=== PATIENT | female | born 1965 | race Hispanic/Latino ===

== ENCOUNTER 2018-02-18 08:43 | Observation (INO) | payer MEDICARE ==
[2018-02-17 15:50] VITALS: BP 127/69
[2018-02-17 16:05] LABS: BASOPHILS % (AUTO) 0.5 % (0.0-5.0); EOSINOPHILS % (AUTO) 6.8 % (0.0-8.0); HEMATOCRIT 37.2 % (36-48); LYMPHOCYTES % (AUTO) 24.3 % (21.0-51.0); MEAN CORPUSCULAR HEMOGLOBIN 28.1 pg (27.0-33.0); MEAN CORPUSCULAR HGB CONC 34.9 g/dL (32.0-36.0); MEAN CORPUSCULAR VOLUME 80.4 fL (79-99); MONOCYTES % (AUTO) 10.1 % (3.0-13.0); NEUTROPHILS % (AUTO) 58.3 % (40.0-77.0); NUCLEATED RED BLOOD CELLS 0.1 % (0.0-0.19); PLATELET COUNT (AUTO) 315 K/uL (130-400); RED BLOOD CELL COUNT(AUTO) 4.63 MIL/uL (4.00-5.50); RED CELL DISTRIBUTION WIDTH 14.6 % (11.0-15.5); WHITE BLOOD COUNT (AUTO) 8.9 K/uL (4.8-10.8)
[2018-02-17 16:14] LABS: CREATININE 0.6 mg/dL (0.5-1.5); POTASSIUM 4.1 mmol/L (3.5-5.1)
[~2018-02-18] VITALS: Ht 160 cm; Wt 119.9 kg
[2018-02-18] VITALS (25 sets, daily range): BP systolic 84–137; BP diastolic 52–88
[~2018-02-18 08:43] MED LIST: CEFAZOLIN 3GM /D5W 100ML 100 ML IV SCH; LOSA1TAB37 PO; METF500T6 PO; NAPR-1023 PO; ROPI4TAB4 PO
[2018-02-18] MEDS ORDERED: SODIUM CHLORIDE 0.9% 1000ML 1,000 ML IV ONE (09:44)
[2018-02-18] MEDS ORDERED: MEPERIDINE-PF 25 MG/ML SYG ONE (09:56)
[2018-02-18] MEDS ORDERED: MEPERIDINE-PF 25 MG/ML SYG IV SCH (10:00)
[2018-02-18] MEDS: CEFAZOLIN SODIUM 1 GM VIAL ONE ×2 (10:04→14:11)
[2018-02-18] MEDS ORDERED: CEFAZOLIN SODIUM 1 GM VIAL ONE ×2 (13:06→14:54)
[2018-02-18] MEDS ORDERED: PROPOFOL 10 MG/ML 20ML VIAL IV ONE (13:45)
[2018-02-18] MEDS ORDERED: DEXAMETHASONE SOD PHOSPHATE 10MG/ML 1ML VIAL ONE (13:45)
[2018-02-18] MEDS ORDERED: ONDANSETRON HCL 4 MG/2 ML VIAL ONE (13:45)
[2018-02-18] MEDS ORDERED: MIDAZOLAM HCL 1 MG/ML 2ML VIAL ONE (13:45)
[2018-02-18] MEDS ORDERED: GLYCOPYRROLATE 0.2 MG/ML 5 ML VIAL ONE ×2 (13:45→14:41)
[2018-02-18] MEDS ORDERED: LIDOCAINE PF 2% 5ML ABBOJECT ONE (13:45)
[2018-02-18] MEDS ORDERED: FENTANYL CITRATE PF 50 MCG/1 ML 2ML VIAL ONE (13:46)
[2018-02-18] MEDS ORDERED: ROPIVACAINE 0.5% 5MG/ML 30ML IJ ONE (13:56)
[2018-02-18] MEDS ORDERED: PHENYLEPHRINE HCL 10 MG/ML 1ML VIAL IV ONE (14:41)
[2018-02-18] MEDS ORDERED: NEOSTIGMINE METHYLSULFATE 1MG/ML IV ONE (14:41)
[2018-02-18] MEDS ORDERED: EPHEDRINE SULFATE 50 MG/ML AMPULE ONE (15:24)
[2018-02-18] MEDS ORDERED: DiphenhydrAMINE HCL 50 MG/ML VIAL IVP PRN (16:15)
[2018-02-18] MEDS ORDERED: POTASSIUM CHLORIDE 20 MEQ ERTAB PO PRN (16:15)
[2018-02-18] MEDS ORDERED: TEMAZEPAM 15 MG CAPSULE PO PRN (16:15)
[2018-02-18] MEDS ORDERED: PROMETHAZINE HCL 25 MG/ML 1ML AMPULE IM PRN (16:15)
[2018-02-18] MEDS ORDERED: FE FUMARATE/FA/MV, MIN COMB#15 1 TAB PO PRN (16:15)
[2018-02-18] MEDS ORDERED: DIPHENHYDRAMINE HCL 25 MG CAPSULE PO PRN (16:15)
[2018-02-18] MEDS ORDERED: HYDROCODONE/ACETAMINOPHEN 5/325 MG TAB PO PRN (16:15)
[2018-02-18] MEDS ORDERED: POTASSIUM CHLORIDE 10% ELIXIR 20 MEQ/15 ML UDCUP PO PRN (16:15)
[2018-02-18] MEDS ORDERED: POTASSIUM CHLORIDE 20MEQ/100ML 100 ML IV PRN (16:15)
[2018-02-18] MEDS ORDERED: LIDOCAINE HCL-MPF 1% 2ML VIAL IVP PRN (16:15)
[2018-02-18] MEDS ORDERED: CALCIUM CARBONATE 500 MG TABLET PO PRN (16:15)
[2018-02-18] MEDS ORDERED: TRANEXAMIC ACID 1000MG/10ML IV ONE (16:42)
[2018-02-18] MEDS: KETOROLAC TROMETHAMINE 30MG/ML IV PRN (18:40)
[2018-02-18] MEDS: SODIUM CHLORIDE 0.9% 1000ML 1,000 ML IV SCH ×2 (18:40→22:01)
[2018-02-18] MEDS ORDERED: MORPHINE SULFATE 2 MG/ML 1ML SYG IVP PRN (20:00)
[2018-02-18] MEDS: FAMOTIDINE 20MG TAB 20 MG TAB PO SCH (20:15)
[2018-02-18] MEDS: HYDROCODONE/ACETAMINOPHEN 5/325 MG TAB PO PRN (20:18)
[2018-02-18] MEDS: INSULIN HUMULIN R 100 UNIT/ML 3ML SQ SCH (20:23)
[2018-02-18] MEDS: CEFAZOLIN 3GM /D5W 100ML 100 ML IV SCH (21:58)
[2018-02-18] MEDS: METFORMIN HCL 500 MG TABLET PO SCH (22:01)
[2018-02-18] MEDS: ROPINIROLE HCL 1 MG TABLET PO SCH (22:09)
[2018-02-19 04:00] VITALS: BP 124/71
[2018-02-19] MEDS: HYDROCODONE/ACETAMINOPHEN 5/325 MG TAB PO PRN (05:10)
[2018-02-19] MEDS: CEFAZOLIN 3GM /D5W 100ML 100 ML IV SCH (05:11)
[2018-02-19 05:45] LABS: HEMATOCRIT 33.4 % (36-48); MEAN CORPUSCULAR HEMOGLOBIN 27.5 pg (27.0-33.0); MEAN CORPUSCULAR VOLUME 80.8 fL (79-99); NUCLEATED RED BLOOD CELLS 0.1 % (0.0-0.19); PLATELET COUNT (AUTO) 269 K/uL (130-400); RED BLOOD CELL COUNT(AUTO) 4.14 MIL/uL (4.00-5.50); RED CELL DISTRIBUTION WIDTH 14.8 % (11.0-15.5); WHITE BLOOD COUNT (AUTO) 8.4 K/uL (4.8-10.8)
[2018-02-19 06:12] LABS: CREATININE 0.7 mg/dL (0.5-1.5); POTASSIUM 3.3 mmol/L (3.5-5.1)
[2018-02-19] MEDS: INSULIN HUMULIN R 100 UNIT/ML 3ML SQ SCH ×2 (07:30→11:30)
[2018-02-19 08:00] VITALS: BP 113/70
[2018-02-19] MEDS: METFORMIN HCL 500 MG TABLET PO SCH (08:35)
[2018-02-19] MEDS: ROPINIROLE HCL 1 MG TABLET PO SCH (08:35)
[2018-02-19] MEDS: FAMOTIDINE 20MG TAB 20 MG TAB PO SCH (08:35)
[2018-02-19] MEDS: KETOROLAC TROMETHAMINE 30MG/ML IV PRN (08:37)
[2018-02-19] MEDS: SODIUM CHLORIDE 0.9% 1000ML 1,000 ML IV SCH (08:48)
[2018-02-19] MEDS ORDERED: ENOXAPARIN SODIUM 40 MG/0.4 ML SYRINGE SQ SCH (09:00)
[2018-02-19] MEDS ORDERED: NAPROXEN 500 MG TABLET PO SCH (09:00)
[2018-02-19] MEDS ORDERED: LOSARTAN/HYDROCHLOROTHIAZIDE 50-12.5MG TABLET PO SCH (09:00)
[2018-02-19] MEDS ORDERED: POLYETHYLENE GLYCOL 3350 17 GM POWD.PACK PO SCH (09:00)
[2018-02-19] MEDS ORDERED: HYDR-2132 PO (10:31)
[2018-02-19 12:00] VITALS: BP 115/64
[2018-02-19] MEDS ORDERED: PSYLLIUM SEED 1 EACH PACKET PO SCH (12:00)
[2018-02-20] MEDS ORDERED: BISACODYL 5 MG TABLET.DR PO PRN (16:15)
[2018-02-21] MEDS ORDERED: BISACODYL 10 MG SUPP.RECT RC PRN (16:15)
== END 2018-02-19 14:05 | disposition home health service (06) ==
LOC: DAH 08:43 → 4AH 08:44 → DAH 08:44
PROVIDERS: ADMIT Orthopaedic Surgery; ATTEND Orthopaedic Surgery
DX: M25.512 Pain in left shoulder (principal); E11.9 Type 2 diabetes mellitus without complications; I10 Essential (primary) hypertension; M06.9 Rheumatoid arthritis, unspecified; Z90.710 Acquired absence of both cervix and uterus; Z96.619 Presence of unspecified artificial shoulder joint; Z82.49 Family history of ischemic heart disease and other diseases of the circulatory system; Z83.3 Family history of diabetes mellitus
CPT/HCPCS: 23130; 36415 ×2; 80048 ×2; 82948 ×4; 85025; 85027; 87070; 87076; 87205; 88300; 96365; 96372; 96375 ×2; 96376; A4218; A4565; A4600; A4649 ×2; A4930 ×2; A6204; C1776; G0378 ×29; J0690 ×4; J1100; J1650; J1885 ×2; J2001; J2175; J2250; J2370; J2405; J2704; J2710; J2795; J3010; J3490 ×4; J7030 ×3; 96374

== ENCOUNTER → 2018-05-10 | Outpatient (CLI) | payer MEDICARE ==
[~2018-05-10] MED LIST changes: -CEFAZOLIN 3GM /D5W 100ML 100 ML IV SCH; +ESOM40CA PO; +HYDR-2132 PO; +HYDR-309 PO; +HYDR25TA PO; +ROPI2TAB2 PO; +VENL75TA63 PO
== END | disposition home or self-care (01) ==
LOC: RAH 14:14
PROVIDERS: ATTEND Physician Assistant
DX: M25.551 Pain in right hip (principal); M79.89 Other specified soft tissue disorders
CPT/HCPCS: 72100; 73502

== ENCOUNTER 2018-05-26 15:00 | Observation (INO) | payer MEDICARE ==
[~2018-05-26] VITALS: Ht 157.5 cm; Wt 119.1 kg
[~2018-05-26 15:00] MED LIST changes: -ESOM40CA PO; -HYDR-2132 PO; -HYDR-309 PO; -HYDR25TA PO; -ROPI2TAB2 PO; -ROPI4TAB4 PO; -VENL75TA63 PO
[2018-05-26 15:26] VITALS: BP 127/75
[2018-05-26 15:30] LABS: BASOPHILS % (AUTO) 0.5 % (0.0-5.0); EOSINOPHILS % (AUTO) 6.1 % (0.0-8.0); HEMATOCRIT 38.6 % (36-48); LYMPHOCYTES % (AUTO) 27.1 % (21.0-51.0); MEAN CORPUSCULAR HEMOGLOBIN 27.3 pg (27.0-33.0); MEAN CORPUSCULAR HGB CONC 34.6 g/dL (32.0-36.0); MONOCYTES % (AUTO) 7.7 % (3.0-13.0); NEUTROPHILS % (AUTO) 58.6 % (40.0-77.0); PLATELET COUNT (AUTO) 326 K/uL (130-400); RED BLOOD CELL COUNT(AUTO) 4.88 MIL/uL (4.00-5.50); RED CELL DISTRIBUTION WIDTH 16.3 % (11.0-15.5); WHITE BLOOD COUNT (AUTO) 8.2 K/uL (4.8-10.8)
[2018-05-26 15:37] LABS: CREATININE 0.7 mg/dL (0.5-1.5); POTASSIUM 3.5 mmol/L (3.5-5.1)
[2018-05-26] MEDS ORDERED: ROPI2TAB2 PO (15:47)
[2018-05-26] MEDS ORDERED: ESOM40CA PO (15:47)
[2018-05-26] MEDS ORDERED: VENL75TA63 PO (15:47)
[2018-05-26] MEDS ORDERED: HYDR25TA PO (15:47)
[2018-05-27] VITALS (22 sets, daily range): BP systolic 106–168; BP diastolic 63–85
[2018-05-27] MEDS ORDERED: SODIUM CHLORIDE 0.9% 1000ML 1,000 ML IV ONE (08:15)
[2018-05-27] MEDS ORDERED: CEFAZOLIN SODIUM 1 GM VIAL ONE (08:51)
[2018-05-27] MEDS ORDERED: GLYCOPYRROLATE 0.2 MG/ML 5 ML VIAL ONE (08:52)
[2018-05-27] MEDS ORDERED: NEOSTIGMINE 5MG/5ML SYR IV ONE (08:52)
[2018-05-27] MEDS ORDERED: LIDOCAINE PF 2% 5ML ABBOJECT ONE (08:52)
[2018-05-27] MEDS ORDERED: ONDANSETRON HCL 4 MG/2 ML VIAL ONE ×3 (08:52→13:45)
[2018-05-27] MEDS ORDERED: DEXAMETHASONE SOD PHOSPHATE 10MG/ML 1ML VIAL ONE (08:52)
[2018-05-27] MEDS ORDERED: PROPOFOL 10 MG/ML 20ML VIAL IV ONE (08:53)
[2018-05-27] MEDS ORDERED: MIDAZOLAM HCL 1 MG/ML 2ML VIAL ONE (08:53)
[2018-05-27] MEDS ORDERED: FENTANYL CITRATE PF 50 MCG/1 ML 2ML VIAL ONE (08:53)
[2018-05-27] MEDS: CEFAZOLIN SODIUM 1 GM VIAL ONE ×2 (09:02→11:05)
[2018-05-27] MEDS ORDERED: POTASSIUM CHLORIDE 20 MEQ ERTAB PO PRN (13:00)
[2018-05-27] MEDS ORDERED: TEMAZEPAM 15 MG CAPSULE PO PRN (13:00)
[2018-05-27] MEDS ORDERED: POTASSIUM CHLORIDE 10% ELIXIR 20 MEQ/15 ML UDCUP PO PRN (13:00)
[2018-05-27] MEDS ORDERED: FE FUMARATE/FA/MV, MIN COMB#15 1 TAB PO PRN (13:00)
[2018-05-27] MEDS ORDERED: TRAMADOL HCL 50 MG TABLET PO PRN (13:00)
[2018-05-27] MEDS ORDERED: LIDOCAINE HCL-MPF 1% 2ML VIAL IVP PRN (13:00)
[2018-05-27] MEDS ORDERED: DiphenhydrAMINE HCL 50 MG/ML VIAL IVP PRN (13:00)
[2018-05-27] MEDS ORDERED: OXYCODONE HCL 5 MG TAB PO PRN (13:00)
[2018-05-27] MEDS ORDERED: KETOROLAC TROMETHAMINE 15MG/ML IV PRN (13:00)
[2018-05-27] MEDS ORDERED: POTASSIUM CHLORIDE 20MEQ/100ML 100 ML IV PRN (13:00)
[2018-05-27] MEDS ORDERED: ONDANSETRON HCL 4 MG/2 ML VIAL IVP PRN (13:00)
[2018-05-27] MEDS ORDERED: CALCIUM CARBONATE 500 MG TABLET PO PRN (13:00)
[2018-05-27] MEDS: ACETAMINOPHEN EXTRA STRENGTH 500 MG TABLET PO SCH ×2 (13:00→20:48)
[2018-05-27 13:41] LABS: APPEARANCE BODY FLUID TURBID (CLEAR); BODY FLUID WBC 400 /cu. mm.; COLOR,BODY FLUID RED (LT YELLOW); SPECIMENTYPE,BODY FLUID SYNOVIAL; TOTAL VOLUME,BODY FLUID 2 mL
[2018-05-27 13:42] LABS: BODY FLUID RBC 100625 /cu. mm.
[2018-05-27 13:45] LABS: BF LYMPHOCYTE 49 %; BF MESOTHELIAL 23 %; BF MONOCYTE 2 %
[2018-05-27] MEDS: SODIUM CHLORIDE 0.9% 1000ML 1,000 ML IV SCH (15:17)
[2018-05-27] MEDS: INSULIN HUMULIN R 100 UNIT/ML 3ML SQ SCH ×2 (17:13→23:18)
[2018-05-27] MEDS ORDERED: CEFAZOLIN 3GM /D5W 100ML 100 ML IV SCH (18:00)
[2018-05-27] MEDS: CEFAZOLIN SODIUM 1 GM VIAL IVP SCH (18:00)
[2018-05-27] MEDS: CEFAZOLIN 3GM /D5W 100ML 100 ML IV SCH (19:25)
[2018-05-27] MEDS ORDERED: NAPROXEN 500 MG TABLET PO PRN (20:15)
[2018-05-27] MEDS: ROPINIROLE HCL 1 MG TABLET PO SCH (20:45)
[2018-05-27] MEDS: ASPIRIN 325 MG TABLET PO SCH (20:45)
[2018-05-27] MEDS: CELECOXIB 200 MG CAP PO SCH (20:45)
[2018-05-27] MEDS: FAMOTIDINE 20MG TAB 20 MG TAB PO SCH (20:45)
[2018-05-27] MEDS: VENLAFAXINE HCL 75 MG TAB PO SCH (20:45)
[2018-05-27] MEDS: PREGABALIN 25 MG CAP PO SCH (21:00)
[2018-05-27] MEDS: OXYCODONE HCL 5 MG TAB PO PRN (23:41)
[2018-05-28] MEDS ORDERED: PANTOPRAZOLE SODIUM 40 MG TABLET.DR PO ONE (01:22)
[2018-05-28] MEDS: PANTOPRAZOLE SODIUM 40 MG TABLET.DR PO SCH ×2 (01:28→08:37)
[2018-05-28] MEDS: CEFAZOLIN 3GM /D5W 100ML 100 ML IV SCH (01:29)
[2018-05-28] MEDS: SODIUM CHLORIDE 0.9% 1000ML 1,000 ML IV SCH (01:31)
[2018-05-28] MEDS: CEFAZOLIN SODIUM 1 GM VIAL IVP SCH (01:32)
[2018-05-28 04:46] LABS: HEMATOCRIT 34.5 % (36-48); MEAN CORPUSCULAR HEMOGLOBIN 26.9 pg (27.0-33.0); MEAN CORPUSCULAR HGB CONC 33.8 g/dL (32.0-36.0); MEAN CORPUSCULAR VOLUME 79.6 fL (79-99); NUCLEATED RED BLOOD CELLS 0.1 % (0.0-0.19); PLATELET COUNT (AUTO) 280 K/uL (130-400); RED BLOOD CELL COUNT(AUTO) 4.33 MIL/uL (4.00-5.50); RED CELL DISTRIBUTION WIDTH 16.5 % (11.0-15.5)
[2018-05-28 04:52] VITALS: BP 124/65
[2018-05-28 04:54] LABS: CREATININE 0.8 mg/dL (0.5-1.5); POTASSIUM 3.3 mmol/L (3.5-5.1)
[2018-05-28] MEDS: ACETAMINOPHEN EXTRA STRENGTH 500 MG TABLET PO SCH (06:01)
[2018-05-28] MEDS: INSULIN HUMULIN R 100 UNIT/ML 3ML SQ SCH ×2 (06:54→12:08)
[2018-05-28] MEDS: OXYCODONE HCL 5 MG TAB PO PRN (07:36)
[2018-05-28] MEDS ORDERED: METFORMIN HCL 500 MG TABLET PO SCH (08:00)
[2018-05-28 08:28] VITALS: BP 144/85
[2018-05-28] MEDS: CELECOXIB 200 MG CAP PO SCH (08:36)
[2018-05-28] MEDS: ROPINIROLE HCL 1 MG TABLET PO SCH (08:36)
[2018-05-28] MEDS: FAMOTIDINE 20MG TAB 20 MG TAB PO SCH (08:36)
[2018-05-28] MEDS: PREGABALIN 25 MG CAP PO SCH (08:36)
[2018-05-28] MEDS: ASPIRIN 325 MG TABLET PO SCH (08:36)
[2018-05-28] MEDS: VENLAFAXINE HCL 75 MG TAB PO SCH (08:37)
[2018-05-28] MEDS ORDERED: POLYETHYLENE GLYCOL 3350 17 GM POWD.PACK PO SCH (09:00)
[2018-05-28] MEDS ORDERED: LOSARTAN/HYDROCHLOROTHIAZIDE 50-12.5MG TABLET PO SCH (09:00)
[2018-05-28] MEDS ORDERED: HYDROCHLOROTHIAZIDE 25 MG TABLET PO SCH (09:00)
[2018-05-28] MEDS ORDERED: HYDR-309 PO (11:04)
[2018-05-30] MEDS ORDERED: BISACODYL 10 MG SUPP.RECT RC PRN (13:00)
== END 2018-05-28 12:45 | disposition home health service (06) ==
LOC: EDSTATUS 15:00 → DAHIP 05-27 07:31 → 4AH 05-27 13:35
PROVIDERS: ADMIT Orthopaedic Surgery; ATTEND Orthopaedic Surgery
DX: L91.0 Hypertrophic scar (principal); E11.9 Type 2 diabetes mellitus without complications; I10 Essential (primary) hypertension; M06.9 Rheumatoid arthritis, unspecified; Z90.710 Acquired absence of both cervix and uterus; Z83.3 Family history of diabetes mellitus; Z82.49 Family history of ischemic heart disease and other diseases of the circulatory system; Z79.899 Other long term (current) drug therapy; Z96.619 Presence of unspecified artificial shoulder joint
CPT/HCPCS: 23130; 36415 ×2; 76000; 80048 ×2; 82948 ×6; 85025; 85027; 87070; 87076; 87205; 89051; 96365; 96366; 96372 ×2; 96375; A4218; A4565; A4600; A4930; A6206; G0168; G0378 ×30; J0690 ×4; J1100; J1815 ×4; J2001; J2250; J2405 ×3; J2704; J2710; J3010; J3490; J7030 ×3

== ENCOUNTER 2019-07-28 07:15 | Day surgery (SDC) | payer MEDICARE ==
[2019-07-27 15:00] VITALS: BP 156/78
[2019-07-27 15:19] LABS: BASOPHILS % (AUTO) 0.9 % (0.0-5.0); EOSINOPHILS % (AUTO) 7.1 % (0.0-8.0); HEMATOCRIT 39.4 % (36-48); LYMPHOCYTES % (AUTO) 25.2 % (21.0-51.0); MEAN CORPUSCULAR HEMOGLOBIN 28.3 pg (27.0-33.0); MEAN CORPUSCULAR HGB CONC 33.8 g/dL (32.0-36.0); MEAN CORPUSCULAR VOLUME 83.7 fL (79-99); MONOCYTES % (AUTO) 8.1 % (3.0-13.0); NEUTROPHILS % (AUTO) 58.7 % (40.0-77.0); PLATELET COUNT (AUTO) 313 K/uL (130-400); RED BLOOD CELL COUNT(AUTO) 4.71 MIL/uL (4.00-5.50); RED CELL DISTRIBUTION WIDTH 14.9 % (11.0-15.5); WHITE BLOOD COUNT (AUTO) 8.6 K/uL (4.8-10.8)
[2019-07-27 15:30] LABS: CREATININE 0.7 mg/dL (0.5-1.5)
[2019-07-27 15:57] VITALS: BP 141/63
[2019-07-28] VITALS (16 sets, daily range): BP systolic 120–142; BP diastolic 62–82
[~2019-07-28] VITALS: Ht 174 cm; Wt 87.4 kg
[~2019-07-28 07:15] MED LIST changes: +AMLO5TAB9 PO; +ATOR10TA69 PO; -LOSA1TAB37 PO; +MECL-111 PO; +METF-446 PO; -METF500T6 PO; -NAPR-1023 PO; +ROPI4TAB6 PO; +TRESIBA FLEX TOUCH SQ
--- NOTE | 2019-07-28 07:30 | NUR ---
POTENTIAL FOR INFECTION: SHAVED RIGHT HAND / LOWER ARM PER KEL ROBLERO, FOLLOWED BY WIPING WITH RADHA: 2% CHLORHEXIDINE GLUCONATE CLOTH PATIENTS PRE-OP SKIN PREP.
[2019-07-28] MEDS ORDERED: LIDOCAINE PF 2% 5ML ABBOJECT ONE (07:53)
[2019-07-28] MEDS ORDERED: SODIUM CHLORIDE 0.9% 1000ML 1,000 ML IV ONE (07:53)
[2019-07-28] MEDS ORDERED: FENTANYL CITRATE PF 50 MCG/1 ML 2ML VIAL ONE (07:54)
[2019-07-28] MEDS ORDERED: PROPOFOL 10 MG/ML 20ML VIAL IV ONE (07:54)
[2019-07-28] MEDS: CEFAZOLIN SODIUM 1 GM VIAL IVP SCH ×2 (08:00→08:30)
[2019-07-28] MEDS ORDERED: PHENYLEPHRINE HCL 10 MG/ML 1ML VIAL IV ONE (08:46)
[2019-07-28] MEDS ORDERED: SODIUM CHLORIDE 0.9% 10 ML VIAL ONE (08:46)
[2019-07-28] MEDS ORDERED: BUPIVACAINE/PF 0.5% 30ML VIAL ONE (08:48)
[2019-07-28] MEDS ORDERED: CEFAZOLIN SODIUM 1 GM VIAL ONE (08:48)
[2019-07-28] MEDS ORDERED: OCTYL 2-CYANOACRYLATE 1 EACH TP ONE (09:13)
[2019-07-28] MEDS ORDERED: ONDANSETRON HCL 4 MG/2 ML VIAL ONE (09:13)
[2019-07-28] MEDS ORDERED: KETOROLAC TROMETHAMINE 30MG/ML ONE (09:14)
[2019-07-28] MEDS ORDERED: CEPH500B PO (09:42)
[2019-07-28] MEDS ORDERED: TYL3 PO (09:42)
[2019-07-28] MEDS ORDERED: MEPERIDINE-PF 25 MG/ML SYG ONE (10:08)
--- NOTE | 2019-07-28 10:55 | NUR ---
post op received pt from pacu, ,s/p right carpal tunnel release , dressing dry and intact. neurovascular checks wnl . pt awake and alert,no distress noted. denies any pain or discomfort. patient placed on arm sling to right arm. vs stable on arrival
--- NOTE | 2019-07-28 11:20 | NUR ---
dc dc instructions given to pt spouse with rx x2 , instructed to f/u with dr. george campoverde, instructed on all dr campoverde post orders and copy of instructions given to pt/spouse
--- NOTE | 2019-07-28 11:25 | NUR ---
dc pt dc home via wc, no distress noted. denied any pain or discomforts. accompanied by spouse. right arm with dressing dry and intact, arm sling in place.
== END 2019-07-28 11:25 | disposition home or self-care (01) ==
LOC: DAH 07:15
PROVIDERS: ATTEND Orthopaedic Surgery
DX: M65.4 Radial styloid tenosynovitis [de Quervain] (principal); E78.5 Hyperlipidemia, unspecified; F17.210 Nicotine dependence, cigarettes, uncomplicated; I10 Essential (primary) hypertension; Z90.49 Acquired absence of other specified parts of digestive tract; Z98.890 Other specified postprocedural states; E11.9 Type 2 diabetes mellitus without complications; Z79.84 Long term (current) use of oral hypoglycemic drugs; Z79.899 Other long term (current) drug therapy; M06.9 Rheumatoid arthritis, unspecified
CPT/HCPCS: 25000; 36415; 80048; 82948 ×2; 85025; A4215 ×2; A4221; A4222; A4223; A4649; A4663; A4930 ×2; A5120; A6223; J0690 ×2; J1885; J2001; J2175; J2370; J2405; J2704; J3010; J3490; J7030

== ENCOUNTER 2019-12-14 04:37 | Emergency (ER) | payer MEDICARE ==
[~2019-12-14 04:37] MED LIST changes: +CEPH500B PO; -MECL-111 PO; +MECL-160 PO; +TYL3 PO
[2019-12-14] MEDS ORDERED: ONDANSETRON HCL 4 MG/2 ML VIAL ONE (05:01)
[2019-12-14] MEDS ORDERED: INSULIN HUMULIN R 100 UNIT/ML 3ML ONE (05:02)
[2019-12-14] MEDS ORDERED: MORPHINE SULFATE 4 MG/1ML SYG ONE (05:02)
[2019-12-14] MEDS ORDERED: SODIUM CHLORIDE 0.9% 1000ML 1,000 ML IV ONE (05:03)
[2019-12-14 05:08] LABS: BASOPHILS % (AUTO) 0.5 % (0.0-5.0); EOSINOPHILS % (AUTO) 6.3 % (0.0-8.0); HEMATOCRIT 42.6 % (36-48); LYMPHOCYTES % (AUTO) 33.4 % (21.0-51.0); MEAN CORPUSCULAR HEMOGLOBIN 26.8 pg (27.0-33.0); MEAN CORPUSCULAR HGB CONC 33.3 g/dL (32.0-36.0); MEAN CORPUSCULAR VOLUME 80.5 fL (79-99); MONOCYTES % (AUTO) 9.6 % (3.0-13.0); PLATELET COUNT (AUTO) 274 K/uL (130-400); RED BLOOD CELL COUNT(AUTO) 5.29 MIL/uL (4.00-5.50); RED CELL DISTRIBUTION WIDTH 13.4 % (11.0-15.5); WHITE BLOOD COUNT (AUTO) 6.4 K/uL (4.8-10.8)
[2019-12-14 05:10] LABS: APPEARANCE,URINE Cloudy (CLEAR); BILIRUBIN,URINE Negative (NEGATIVE); COLOR,URINE Yellow (YELLOW); GLUCOSE, URINE (UA) >=1000 mg/dL (NEGATIVE); KETONES,URINE Negative (NEGATIVE); LEUKOCYTE ESTERASE ,URINE Trace (NEGATIVE); NITRATE,URINE Negative (NEGATIVE); OCCULT BLOOD,URINE Negative (NEGATIVE); PROTEIN,URINE Negative (NEGATIVE)
[2019-12-14 05:25] LABS: CREATININE 0.6 mg/dL (0.5-1.5)
[2019-12-14 05:31] LABS: ALBUMIN 3.1 g/dL (3.5-5.0); BILIRUBIN,TOTAL 0.5 mg/dL (0.2-1.0)
[2019-12-14 05:41] LABS: BACTERIA,URINE Moderate /HPF (None Seen)
[2019-12-14] MEDS ORDERED: CEPHALEXIN 500 MG CAPSULE ONE (06:53)
== END 2019-12-14 08:33 | disposition home or self-care (01) ==
LOC: EDH 04:37
DX: N39.0 Urinary tract infection, site not specified (principal); E11.65 Type 2 diabetes mellitus with hyperglycemia; I10 Essential (primary) hypertension; Z90.49 Acquired absence of other specified parts of digestive tract; Z90.710 Acquired absence of both cervix and uterus; Z72.0 Tobacco use
CPT/HCPCS: 36415; 74176; 80053; 81001; 82948 ×2; 83690; 84484; 85025; 87077; 87088; 87186; 93005; 96361; 96372; 96374; 96375; 99285; J1815; J2270; J2405; J7030

== ENCOUNTER 2019-12-17 00:51 | Emergency (ER) | payer MEDICARE ==
[2019-12-17 01:11] LABS: APPEARANCE,URINE Clear (CLEAR); BILIRUBIN,URINE Negative (NEGATIVE); COLOR,URINE Yellow (YELLOW); GLUCOSE, URINE (UA) >=1000 mg/dL (NEGATIVE); KETONES,URINE Negative (NEGATIVE); LEUKOCYTE ESTERASE ,URINE Negative (NEGATIVE); NITRATE,URINE Negative (NEGATIVE); OCCULT BLOOD,URINE Negative (NEGATIVE); PH,URINE 6.5 (5.0-8.0); PROTEIN,URINE Negative (NEGATIVE)
[2019-12-17] MEDS ORDERED: SODIUM CHLORIDE 0.9% 1000ML 1,000 ML IV ONE (01:12)
[2019-12-17] MEDS ORDERED: DiphenhydrAMINE HCL 50 MG/ML VIAL ONE (01:15)
[2019-12-17] MEDS ORDERED: INSULIN HUMULIN R 100 UNIT/ML 3ML ONE (01:16)
[2019-12-17] MEDS ORDERED: PROCHLORPERAZINE EDISYLATE 10 MG/2 ML VIAL ONE (01:16)
[2019-12-17 01:19] LABS: BASOPHILS % (AUTO) 0.6 % (0.0-5.0); HEMATOCRIT 42.3 % (36-48); LYMPHOCYTES % (AUTO) 35.6 % (21.0-51.0); MEAN CORPUSCULAR HGB CONC 33.8 g/dL (32.0-36.0); MEAN CORPUSCULAR VOLUME 79.8 fL (79-99); MONOCYTES % (AUTO) 8.6 % (3.0-13.0); NEUTROPHILS % (AUTO) 47.9 % (40.0-77.0); PLATELET COUNT (AUTO) 281 K/uL (130-400); RED CELL DISTRIBUTION WIDTH 13.2 % (11.0-15.5); WHITE BLOOD COUNT (AUTO) 7.1 K/uL (4.8-10.8)
[2019-12-17 01:27] LABS: CREATININE 0.7 mg/dL (0.5-1.5); POTASSIUM 3.6 mmol/L (3.5-5.1)
[2019-12-17 01:35] LABS: BACTERIA,URINE Rare /HPF (None Seen); RBC,URINE None Seen /HPF (0-1); WBC,URINE None Seen /HPF (0-1)
[2019-12-17 01:35] LABS: ALBUMIN 3.3 g/dL (3.5-5.0); BILIRUBIN,TOTAL 0.7 mg/dL (0.2-1.0); TOTAL PROTEIN, SERUM 7.3 g/dL (6.0-8.3)
== END 2019-12-17 03:05 | disposition home or self-care (01) ==
LOC: EDH 00:51
DX: E11.65 Type 2 diabetes mellitus with hyperglycemia (principal); I10 Essential (primary) hypertension; J32.9 Chronic sinusitis, unspecified; Z79.4 Long term (current) use of insulin; Z90.49 Acquired absence of other specified parts of digestive tract; Z90.710 Acquired absence of both cervix and uterus
CPT/HCPCS: 36415; 70450; 80053; 81001; 82948 ×2; 85025; 96361; 96374; 96375; 99285; J0780; J1200; J1815; J7030

== ENCOUNTER 2020-03-16 17:19 | Emergency (ER) | payer MEDICARE, MEDICAID ==
[2020-03-16] MEDS ORDERED: ACETAMINOPHEN EXTRA STRENGTH 500 MG TABLET ONE (17:27)
== END 2020-03-16 18:18 | disposition home or self-care (01) ==
LOC: EDH 17:19
DX: R03.0 Elevated blood-pressure reading, without diagnosis of hypertension (principal); R50.9 Fever, unspecified; E11.9 Type 2 diabetes mellitus without complications; I10 Essential (primary) hypertension; Z90.49 Acquired absence of other specified parts of digestive tract; Z90.710 Acquired absence of both cervix and uterus
CPT/HCPCS: 87804

== ENCOUNTER 2020-04-09 00:40 | Emergency (ER) | payer MEDICARE ==
[2020-04-09] MEDS ORDERED: SODIUM CHLORIDE IRRIG SOLUTION 1,000 ML IR ONE (00:41)
[2020-04-09 01:04] LABS: BASOPHILS % (AUTO) 0.3 % (0.0-5.0); EOSINOPHILS % (AUTO) 2.6 % (0.0-8.0); HEMATOCRIT 40.2 % (36-48); LYMPHOCYTES % (AUTO) 13.4 % (21.0-51.0); MEAN CORPUSCULAR HEMOGLOBIN 28.3 pg (27.0-33.0); MEAN CORPUSCULAR HGB CONC 34.8 g/dL (32.0-36.0); MEAN CORPUSCULAR VOLUME 81.2 fL (79-99); MONOCYTES % (AUTO) 5.6 % (3.0-13.0); NEUTROPHILS % (AUTO) 77.8 % (40.0-77.0); PLATELET COUNT (AUTO) 230 K/uL (130-400); RED BLOOD CELL COUNT(AUTO) 4.95 MIL/uL (4.00-5.50); RED CELL DISTRIBUTION WIDTH 13.2 % (11.0-15.5); WHITE BLOOD COUNT (AUTO) 11.8 K/uL (4.8-10.8)
[2020-04-09 01:18] LABS: BILIRUBIN,TOTAL 0.6 mg/dL (0.2-1.0); CREATININE 0.7 mg/dL (0.5-1.5); TOTAL PROTEIN, SERUM 6.6 g/dL (6.0-8.3)
[2020-04-09 01:28] LABS: POTASSIUM 2.7 mmol/L (3.5-5.1)
[2020-04-09] MEDS ORDERED: MORPHINE SULFATE 4 MG/1ML SYG ONE (02:23)
[2020-04-09] MEDS ORDERED: ONDANSETRON HCL 4 MG/2 ML VIAL ONE (02:23)
[2020-04-09 04:14] LABS: APPEARANCE,URINE Cloudy (CLEAR); BILIRUBIN,URINE Negative (NEGATIVE); COLOR,URINE Yellow (YELLOW); GLUCOSE, URINE (UA) >=1000 mg/dL (NEGATIVE); KETONES,URINE Trace mg/dL (NEGATIVE); LEUKOCYTE ESTERASE ,URINE Small (NEGATIVE); NITRATE,URINE Positive (NEGATIVE); OCCULT BLOOD,URINE Nonhemolyzed Trace (NEGATIVE); PH,URINE 6.5 (5.0-8.0); PROTEIN,URINE Negative (NEGATIVE)
[2020-04-09 04:23] LABS: BACTERIA,URINE Many /HPF (None Seen); SQUAMOUS EPITHELIAL CELL,UR 0-2 /HPF (0-2)
[2020-04-09] MEDS ORDERED: CEFTRIAXONE SODIUM 1 GM ONE (05:01)
[2020-04-09] MEDS ORDERED: POTASSIUM BICARB/CIT AC 25 MEQ TABLET.EFF ONE (05:01)
[2020-04-09] MEDS ORDERED: KETOROLAC TROMETHAMINE 30MG/ML ONE (05:01)
[2020-04-09] MEDS ORDERED: MAGNESIUM OXIDE 400 MG TABLET PO ONE (06:04)
[2020-04-10] MEDS ORDERED: NAPR-1023 PO (03:48)
[2020-04-10] MEDS ORDERED: EXEN2PEN SQ (03:50)
[2020-04-12] MEDS ORDERED: INSU3INS3 SQ (14:30)
[2020-04-12] MEDS ORDERED: LEVO500T2 PO (14:30)
== END 2020-04-09 06:12 | disposition home or self-care (01) ==
LOC: EDH 00:40
DX: N39.0 Urinary tract infection, site not specified (principal); R10.9 Unspecified abdominal pain; I10 Essential (primary) hypertension; E87.6 Hypokalemia; E11.9 Type 2 diabetes mellitus without complications; Z90.710 Acquired absence of both cervix and uterus; Z90.49 Acquired absence of other specified parts of digestive tract; Z72.0 Tobacco use
CPT/HCPCS: 36415; 74176; 76705; 80053; 81001; 82550; 83690; 83735; 84484; 85025; 87077; 87088; 87186; 93005; 96374; 96375; 99285; J0696; J1885; J2270; J2405

== ENCOUNTER 2020-04-09 10:15 | Inpatient (IN) | payer MEDICARE ==
[2020-04-09] MEDS: SODIUM CHLORIDE 0.9% 1000ML 1,000 ML IV SCH (02:54)
[2020-04-09] MEDS: FAMOTIDINE/PF 20 MG/2 ML VIAL IV SCH (02:54)
[~2020-04-09 10:15] MED LIST changes: +AMLO-257 PO; -AMLO5TAB9 PO
[2020-04-09] MEDS ORDERED: ACETAMINOPHEN EXTRA STRENGTH 500 MG TABLET ONE ×2 (10:39→20:21)
[2020-04-09] MEDS ORDERED: ZOSYN 3.375GM+NS 50ML 50 ML IV ONE ×2 (10:39→20:46)
[2020-04-09 10:44] LABS: BASOPHILS % (AUTO) 0.3 % (0.0-5.0); EOSINOPHILS % (AUTO) 1.5 % (0.0-8.0); HEMATOCRIT 39.8 % (36-48); LYMPHOCYTES % (AUTO) 13.3 % (21.0-51.0); MEAN CORPUSCULAR HEMOGLOBIN 28.4 pg (27.0-33.0); MEAN CORPUSCULAR HGB CONC 34.4 g/dL (32.0-36.0); MEAN CORPUSCULAR VOLUME 82.4 fL (79-99); MONOCYTES % (AUTO) 0.5 % (3.0-13.0); NEUTROPHILS % (AUTO) 84.1 % (40.0-77.0); PLATELET COUNT (AUTO) 166 K/uL (130-400); RED BLOOD CELL COUNT(AUTO) 4.83 MIL/uL (4.00-5.50); RED CELL DISTRIBUTION WIDTH 13.2 % (11.0-15.5); WHITE BLOOD COUNT (AUTO) 3.9 K/uL (4.8-10.8)
[2020-04-09] MEDS ORDERED: ONDANSETRON HCL 4 MG/2 ML VIAL ONE (10:51)
[2020-04-09 11:10] LABS: ALANINE AMINOTRANSFERASE 19 U/L (12-78); ALBUMIN 2.9 g/dL (3.5-5.0); ASPARTATE AMINOTRANSFERASE 15 U/L (10-37); BILIRUBIN,TOTAL 1.2 mg/dL (0.2-1.0); CARBON DIOXIDE 24 mmol/L (21-32); CHLORIDE 102 mmol/L (101-111); CREATINE KINASE, TOTAL 40 U/L (21-232); CREATININE 0.8 mg/dL (0.5-1.5); GLOMERULAR FILTR. RATE CALC 79 mL/min (>60); GLUCOSE,RANDOM 286 mg/dL (70-105); MYOGLOBIN 17 ng/mL (10-92); SODIUM SERUM 138 mmol/L (136-145); TOTAL PROTEIN, SERUM 6.3 g/dL (6.0-8.3); TROPONIN I < 0.04 ng/mL (0.00-0.06); UREA NITROGEN, BLOOD 25 mg/dL (7-18)
[2020-04-09] MEDS ORDERED: MORPHINE SULFATE 2 MG/ML 1ML SYG ONE ×2 (11:28→21:47)
[2020-04-09 11:36] LABS: INR 0.95 (0.85-1.15); PARTIAL THROMBOPLASTIN TIME 22.7 SEC (26.3-35.5); PROTHROMBIN TIME 10.3 SEC (9.6-11.6)
[2020-04-09] MEDS ORDERED: POTASSIUM BICARB/CIT AC 25 MEQ TABLET.EFF ONE (11:47)
[2020-04-09] MEDS ORDERED: ZOSYN 3.375GM+NS 50ML 50 ML IV SCH (18:00)
[2020-04-09] MEDS ORDERED: ACETAMINOPHEN 325 MG TAB PO PRN (19:00)
[2020-04-09] MEDS ORDERED: ONDANSETRON HCL 4 MG/2 ML VIAL IV PRN (19:00)
[2020-04-09 20:36] LABS: APPEARANCE,URINE SL CLOUDY (CLEAR); BILIRUBIN,URINE SMALL (NEGATIVE); COLOR,URINE YELLOW (YELLOW); GLUCOSE, URINE (UA) 250 mg/dL (NEGATIVE); KETONES,URINE 5 mg/dL (NEGATIVE); LEUKOCYTE ESTERASE ,URINE MODERATE (NEGATIVE); NITRATE,URINE POSITIVE (NEGATIVE); OCCULT BLOOD,URINE LARGE (NEGATIVE); PH,URINE 5.5 (5.0-8.0); PROTEIN,URINE >=300 mg/dL (NEGATIVE)
[2020-04-09 20:45] LABS: MUCUS,URINE Few LPF (None Seen); YEAST,URINE BUDDING Moderate /HPF (None Seen)
[2020-04-09 20:46] LABS: BACTERIA,URINE Few /HPF (None Seen); SQUAMOUS EPITHELIAL CELL,UR Few /HPF (0-2)
[2020-04-10 03:41] VITALS: BP 124/55
[2020-04-10] MEDS ORDERED: NAPR-1023 PO ×2 (03:48)
[2020-04-10] MEDS ORDERED: EXEN2PEN SQ ×2 (03:50)
[2020-04-10] MEDS ORDERED: PHARMACY COMMUNICATION MISC SCH (04:15)
[2020-04-10] MEDS: MORPHINE SULFATE 2 MG/ML 1ML SYG IVP PRN ×2 (04:18→11:02)
[2020-04-10] MEDS: SODIUM CHLORIDE 0.9% 1000ML 1,000 ML IV SCH ×2 (04:19→16:53)
[2020-04-10] MEDS: ZOSYN 3.375GM+NS 50ML 50 ML IV SCH ×3 (05:38→20:51)
[2020-04-10] MEDS: INSULIN HUMULIN R 100 UNIT/ML 3ML SQ SCH ×4 (05:50→20:52)
[2020-04-10 07:27] LABS: HEMOGLOBIN A1C 11.2 % (4.0-6.0)
[2020-04-10 08:28] LABS: BASOPHILS % (AUTO) 0.4 % (0.0-5.0); EOSINOPHILS % (AUTO) 2.9 % (0.0-8.0); HEMATOCRIT 33.9 % (36-48); LYMPHOCYTES % (AUTO) 8.1 % (21.0-51.0); MEAN CORPUSCULAR HEMOGLOBIN 29.9 pg (27.0-33.0); MEAN CORPUSCULAR HGB CONC 36.3 g/dL (32.0-36.0); MEAN CORPUSCULAR VOLUME 82.3 fL (79-99); MONOCYTES % (AUTO) 4.9 % (3.0-13.0); NEUTROPHILS % (AUTO) 83.3 % (40.0-77.0); NUCLEATED RED BLOOD CELLS 0.4 % (0.0-0.19); PLATELET COUNT (AUTO) 379 K/uL (130-400); RED BLOOD CELL COUNT(AUTO) 4.12 MIL/uL (4.00-5.50); RED CELL DISTRIBUTION WIDTH 14.2 % (11.0-15.5); WHITE BLOOD COUNT (AUTO) 10.9 K/uL (4.8-10.8)
[2020-04-10 08:37] LABS: ALBUMIN 2.3 g/dL (3.5-5.0); BILIRUBIN,TOTAL 1.3 mg/dL (0.2-1.0); CREATININE 0.7 mg/dL (0.5-1.5); POTASSIUM 3.8 mmol/L (3.5-5.1); TOTAL PROTEIN, SERUM 5.7 g/dL (6.0-8.3)
[2020-04-10 08:52] VITALS: BP 103/55
[2020-04-10] MEDS: FAMOTIDINE/PF 20 MG/2 ML VIAL IV SCH ×2 (08:54→20:51)
[2020-04-10] MEDS: ENOXAPARIN SODIUM 30 MG/0.3 ML SQ SCH (08:55)
--- NOTE | 2020-04-10 13:19 | NUR ---
DC PLAN VISITED WITH PATIENT. PATIENT LIVES WITH GRANDCHILDREN. CURRENTLY THEY ARE STAYING WITH THEIR MOTHER. INDEPENDENT ABLE TO PERFORM ADL'S. PRIOR TO ADMISSION. NO SERVICES OR DME'S. FEELS SAFE TO RETURN HOME. Addendum: 04/10/20 at 1326 by MALLY BRITTON RN CM Amended: Links added.
--- NOTE | 2020-04-10 13:20 | NUR ---
PHYSICAL ADDRESS: [id number] [place] [address]. Addendum: 04/10/20 at 1326 by MALLY BRITTON RN CM Amended: Links added.
[2020-04-10 13:27] VITALS: BP 114/66
[2020-04-10 16:34] VITALS: BP 112/62
[2020-04-10] MEDS: ACETAMINOPHEN 325 MG TAB PO PRN (16:53)
[2020-04-10] MEDS: INSULIN LISPRO 100 UNIT/ML 3ML SQ SCH (16:54)
[2020-04-10 20:31] VITALS: BP 98/40
[2020-04-10] MEDS: INSULIN GLARGINE 100 UNITS/ML 10 ML VIAL SQ SCH (20:53)
[2020-04-10 23:17] VITALS: BP 132/66
[2020-04-11] MEDS: ACETAMINOPHEN 325 MG TAB PO PRN (00:34)
[2020-04-11] MEDS: SODIUM CHLORIDE 0.9% 1000ML 1,000 ML IV SCH ×3 (00:34→21:19)
[2020-04-11 04:29] VITALS: BP 141/82
[2020-04-11] MEDS: ZOSYN 3.375GM+NS 50ML 50 ML IV SCH ×3 (04:38→21:04)
[2020-04-11 05:56] LABS: BASOPHILS % (AUTO) 0.3 % (0.0-5.0); EOSINOPHILS % (AUTO) 5.4 % (0.0-8.0); HEMATOCRIT 34.6 % (36-48); LYMPHOCYTES % (AUTO) 21.7 % (21.0-51.0); MEAN CORPUSCULAR HGB CONC 33.2 g/dL (32.0-36.0); MEAN CORPUSCULAR VOLUME 84.2 fL (79-99); NEUTROPHILS % (AUTO) 64.1 % (40.0-77.0); PLATELET COUNT (AUTO) 139 K/uL (130-400); RED BLOOD CELL COUNT(AUTO) 4.11 MIL/uL (4.00-5.50); RED CELL DISTRIBUTION WIDTH 13.8 % (11.0-15.5); WHITE BLOOD COUNT (AUTO) 7.4 K/uL (4.8-10.8)
[2020-04-11 06:14] LABS: CREATININE 0.7 mg/dL (0.5-1.5); MAGNESIUM 1.7 mg/dL (1.80-2.40); PHOSPHORUS 1.9 mg/dL (2.5-4.9); POTASSIUM 3.1 mmol/L (3.5-5.1)
[2020-04-11] MEDS: INSULIN LISPRO 100 UNIT/ML 3ML SQ SCH ×3 (06:33→19:19)
[2020-04-11 07:08] LABS: ERYTHROCYTE SEDIMENTATION RATE 35 MM/HR (0-30)
[2020-04-11] MEDS: INSULIN HUMULIN R 100 UNIT/ML 3ML SQ SCH ×4 (07:30→21:00)
[2020-04-11] MEDS ORDERED: MAGNESIUM 2GM PREMIX 50ML 50 ML IV PRN (08:30)
[2020-04-11 08:36] VITALS: BP 144/86
[2020-04-11] MEDS: ENOXAPARIN SODIUM 30 MG/0.3 ML SQ SCH (08:54)
[2020-04-11] MEDS: FAMOTIDINE/PF 20 MG/2 ML VIAL IV SCH ×2 (08:55→21:19)
[2020-04-11] MEDS: POTASSIUM CHLORIDE 20 MEQ ERTAB PO SCH ×2 (08:55→13:32)
[2020-04-11] MEDS ORDERED: IBUPROFEN 800 MG TAB PO PRN (10:00)
[2020-04-11 13:52] VITALS: BP 128/87
[2020-04-11 16:30] VITALS: BP 121/48
[2020-04-11 20:18] VITALS: BP 122/56
[2020-04-11] MEDS: INSULIN GLARGINE 100 UNITS/ML 10 ML VIAL SQ SCH (21:03)
[2020-04-11 23:41] VITALS: BP 118/71
[2020-04-12] MEDS: ZOSYN 3.375GM+NS 50ML 50 ML IV SCH (05:27)
[2020-04-12] MEDS: INSULIN LISPRO 100 UNIT/ML 3ML SQ SCH ×2 (05:45→11:30)
[2020-04-12] MEDS: INSULIN HUMULIN R 100 UNIT/ML 3ML SQ SCH ×2 (05:45→11:30)
[2020-04-12 05:46] VITALS: BP 144/94
[2020-04-12] MEDS: SODIUM CHLORIDE 0.9% 1000ML 1,000 ML IV SCH (06:56)
[2020-04-12] MEDS: POTASSIUM CHLORIDE 20 MEQ ERTAB PO SCH ×2 (08:11→13:00)
[2020-04-12] MEDS: FAMOTIDINE/PF 20 MG/2 ML VIAL IV SCH (08:19)
[2020-04-12] MEDS: ENOXAPARIN SODIUM 30 MG/0.3 ML SQ SCH (08:21)
[2020-04-12 08:35] VITALS: BP 118/75
[2020-04-12 11:52] VITALS: BP 137/89
[2020-04-12] MEDS ORDERED: INSU3INS3 SQ ×2 (14:30)
[2020-04-12] MEDS ORDERED: LEVO500T2 PO ×2 (14:30)
--- NOTE | 2020-04-12 14:44 | NUR ---
DC PLAN SPOKE TO PATIENT REGARDING LT[facility]. SAID NO MD SAID GO HOME. CALLED NURSE VERIFIED. ORDER IS TO DC HOME. CALLED [employer] LABORER LET HER KNOW OF IM AND BPCI LETTER FOR PATIENT TO LET NURSE KNOW SINCE PATIENT IN [place] [facility] AND [facility] CAN NOT GO INTO ROOM. Addendum: 04/12/20 at 1446 by MALLY BRITTON RN CM Amended: Links added.
--- NOTE | 2020-04-12 15:00 | NUR ---
DISCHARGED PATIENT HOME ORDERED. D/C INFORMATION/INSTRUCTIONS GIVEN TO PATIENT. TEACH BACK METHOD USED TO EDUCATE PATIENT ON DIET, NEW MEDS PRESCRIBED, S/S TO MONITOR FOR , WHEN TO CALL MD, AND F/U APPOINTMENTS. INSTRUCTED PATIENT TO CONTINUE TO FOLLOW CDC GUIDELINES FOR PREVENTING SPREAD OF COVID-19. INFORMED PATIENT THAT SHE WILL BE CALLED BY INFECTION CONTROL NURSE WITH RESULTS OF COVID-19 TEST AND SHOULD CONTINUE TO SELF QUARANTINE FOR 14 DAYS OR WHEN CALLED WITH NEGATIVE RESULTS HOWEVER INSTRUCTED BY INFECTION CONTROL NURSE. PATIENT VERBALIZED UNDERSTANDING. TELE PACK REMOVED AND RETURNED. ALL BELONGINGS WERE PACKED BY PATIENT.
== END 2020-04-12 16:30 | disposition home or self-care (01) | DRG 872 ==
LOC: EDH 10:15 → EDHIP 18:56 → 2DH 04-10 02:46
PROVIDERS: ADMIT Hospitalist; ATTEND Hospitalist
DX: A41.9 Sepsis, unspecified organism (principal); N12 Tubulo-interstitial nephritis, not specified as acute or chronic; N17.9 Acute kidney failure, unspecified; N39.0 Urinary tract infection, site not specified; Z16.24 Resistance to multiple antibiotics; E86.1 Hypovolemia; E87.6 Hypokalemia; E11.9 Type 2 diabetes mellitus without complications; B96.20 Unspecified Escherichia coli [E. coli] as the cause of diseases classified elsewhere; E78.5 Hyperlipidemia, unspecified; E83.39 Other disorders of phosphorus metabolism; E83.42 Hypomagnesemia; I10 Essential (primary) hypertension; Z20.828 Contact with and (suspected) exposure to other viral communicable diseases; Z79.4 Long term (current) use of insulin; Z82.3 Family history of stroke; Z83.3 Family history of diabetes mellitus; Z82.5 Family history of asthma and other chronic lower respiratory diseases; Z80.0 Family history of malignant neoplasm of digestive organs; Z82.49 Family history of ischemic heart disease and other diseases of the circulatory system
CPT/HCPCS: 36415; 71045; 74176; 76705; 80048; 80053; 81001; 82550; 82948; 83036; 83605; 83690; 83735; 83874; 84100; 84145; 84484; 85025; 85610; 85651; 85730; 86140; 87040; 87077; 87088; 87186; 87635; 93005; 96374; 96375; 99291; G0378; J0696; J1650; J1815; J1885; J2270; J2405; J2543; J3475; J3490; J7030

== ENCOUNTER 2021-06-22 03:22 | Emergency (ER) | payer OTHER, MEDICARE ==
[~2021-06-22] VITALS: Ht 157.5 cm; Wt 112.5 kg
[~2021-06-22 03:22] MED LIST changes: -ATOR10TA69 PO; -CEPH500B PO; +EXEN2PEN SQ; +INSU3INS3 SQ; +LEVO500T2 PO; -MECL-160 PO; +NAPR-1023 PO; -TYL3 PO
[2021-06-22 03:51] VITALS: BP 125/85
[2021-06-22] MEDS ORDERED: ONDANSETRON 4MG INJ IVP ONE (04:00)
[2021-06-22] MEDS ORDERED: METOCLOPRAMIDE 10 MG/2 ML VIAL IVP ONE (04:00)
[2021-06-22] MEDS ORDERED: FAMOTIDINE 20MG VIAL IV ONE (04:00)
[2021-06-22] MEDS ORDERED: 0.9%NACL 1000ML 1,000 ML IV ONE ×3 (04:00→05:33)
[2021-06-22] MEDS ORDERED: PANTOPRAZOLE 40 MG/VIAL IVP ONE (04:00)
[2021-06-22] MEDS ORDERED: METOCLOPRAMIDE 10 MG TABLET ONE (04:16)
[2021-06-22 04:23] LABS: BASOPHILS % (AUTO) 0.3 % (0.0-5.0); EOSINOPHILS % (AUTO) 5.2 % (0.0-8.0); HEMATOCRIT 41.7 % (36-48); LYMPHOCYTES % (AUTO) 22.9 % (21.0-51.0); MEAN CORPUSCULAR HEMOGLOBIN 29.7 pg (27.0-33.0); MEAN CORPUSCULAR HGB CONC 34.1 g/dL (32.0-36.0); MEAN CORPUSCULAR VOLUME 87.2 fL (79-99); MONOCYTES % (AUTO) 7.7 % (3.0-13.0); NEUTROPHILS % (AUTO) 63.4 % (40.0-77.0); PLATELET COUNT (AUTO) 239 K/uL (130-400); RED BLOOD CELL COUNT(AUTO) 4.78 MIL/uL (4.00-5.50); RED CELL DISTRIBUTION WIDTH 12.4 % (11.0-15.5); WHITE BLOOD COUNT (AUTO) 10.7 K/uL (4.8-10.8)
[2021-06-22 04:25] LABS: APPEARANCE,URINE Clear (CLEAR); BILIRUBIN,URINE Negative (NEGATIVE); COLOR,URINE Dark Yellow (YELLOW); GLUCOSE, URINE (UA) Negative (NEGATIVE); KETONES,URINE Trace mg/dL (NEGATIVE); LEUKOCYTE ESTERASE ,URINE Trace (NEGATIVE); NITRATE,URINE Negative (NEGATIVE); OCCULT BLOOD,URINE Negative (NEGATIVE); PH,URINE 5.5 (5.0-8.0); PROTEIN,URINE Trace mg/dL (NEGATIVE)
[2021-06-22 04:34] VITALS: BP 138/86
[2021-06-22 04:34] LABS: CREATININE 0.6 mg/dL (0.5-1.5)
[2021-06-22 04:38] LABS: ALBUMIN 3.2 g/dL (3.5-5.0); BILIRUBIN,TOTAL 0.7 mg/dL (0.2-1.0); TOTAL PROTEIN, SERUM 6.9 g/dL (6.0-8.3)
[2021-06-22 04:39] LABS: BACTERIA,URINE Few /HPF (None Seen); RBC,URINE 0-1 /HPF (0-1); SQUAMOUS EPITHELIAL CELL,UR Moderate /HPF (0-2); WBC,URINE 0-1 /HPF (0-1)
[2021-06-22 04:40] LABS: CALCIUM OXALATE CRYSTALS,UR Few /LPF (None Seen)
[2021-06-22] MEDS ORDERED: DiphenhydrAMINE HCL 50 MG/ML VIAL IV ONE (05:30)
[2021-06-22] MEDS ORDERED: KETOROLAC 30MG VIAL (30MG/ML) IV ONE (05:30)
[2021-06-22] MEDS ORDERED: KETOROLAC 30MG VIAL (30MG/ML) ONE (05:33)
[2021-06-22] MEDS ORDERED: DiphenhydrAMINE HCL 50 MG/ML VIAL ONE (05:33)
[2021-06-22 05:55] VITALS: BP 123/89
[2021-06-22 06:30] VITALS: BP_SYST 111; BP_SYST 127; BP_DIAS 65; BP_DIAS 83
[2021-06-22] MEDS ORDERED: ONDA4TAB10 PO (07:29)
[2021-06-22] MEDS ORDERED: DICY20TA2 PO (07:29)
[2021-06-22] MEDS ORDERED: PANT40TA54 PO (07:29)
[2021-06-22] MEDS ORDERED: METO-296 PO (07:29)
[2021-06-22 07:58] VITALS: BP 107/74
== END 2021-06-22 08:06 | disposition home or self-care (01) ==
LOC: EDH 03:22
DX: E86.0 Dehydration (principal); R10.13 Epigastric pain; R19.7 Diarrhea, unspecified; E11.9 Type 2 diabetes mellitus without complications; I10 Essential (primary) hypertension; Z79.1 Long term (current) use of non-steroidal anti-inflammatories (NSAID); Z79.4 Long term (current) use of insulin; Z79.899 Other long term (current) drug therapy; Z90.710 Acquired absence of both cervix and uterus
CPT/HCPCS: 36415; 74176; 80053; 81001; 83605; 83690; 84484; 85025; 93005; 96361; 96374; 96375; 99285; C9113; J1200; J1885; J2405; J3490; J7030

== ENCOUNTER 2021-08-03 16:13 | Emergency (ER) | payer OTHER, MEDICARE ==
[~2021-08-03] VITALS: Ht 157.5 cm; Wt 111.1 kg
[~2021-08-03 16:13] MED LIST changes: +DICY20TA2 PO; +METO-296 PO; +ONDA4TAB10 PO; +PANT40TA54 PO
[2021-08-03 16:14] VITALS: BP 140/98
== END 2021-08-03 19:00 | disposition left against medical advice (07) ==
LOC: EDH 16:13
DX: R05 Cough (principal); Z20.822 Contact with and (suspected) exposure to COVID-19; Z53.21 Procedure and treatment not carried out due to patient leaving prior to being seen by health care provider
CPT/HCPCS: 71045; 87635; 87804 ×2; C9803

== ENCOUNTER 2022-06-17 22:02 | Emergency (ER) | payer OTHER, MEDICARE ==
[2022-06-17] MEDS ORDERED: MORPHINE 4 MG SYG ONE (22:30)
[2022-06-17] MEDS ORDERED: MORPHINE 4 MG SYG IVP ONE (22:30)
[2022-06-17] MEDS ORDERED: ONDANSETRON 4MG INJ ONE (22:30)
[2022-06-17] MEDS ORDERED: ACET-2079 PO (23:46)
[2022-06-18 00:12] VITALS: BP 138/80
== END 2022-06-18 00:13 | disposition home or self-care (01) ==
LOC: EDH 22:02
DX: S43.401A Unspecified sprain of right shoulder joint, initial encounter (principal); S40.011A Contusion of right shoulder, initial encounter; S70.01XA Contusion of right hip, initial encounter; S00.83XA Contusion of other part of head, initial encounter; I10 Essential (primary) hypertension; Z79.84 Long term (current) use of oral hypoglycemic drugs; Z79.1 Long term (current) use of non-steroidal anti-inflammatories (NSAID); X58.XXXA Exposure to other specified factors, initial encounter; Y93.89 Activity, other specified; Y92.89 Other specified places as the place of occurrence of the external cause; Y99.8 Other external cause status
CPT/HCPCS: 99284; 96374; 70450; 96375; 73060; 73502; 73030; 93005; J2405; J2270

== ENCOUNTER → 2022-08-07 | Outpatient (CLI) | payer OTHER, MEDICARE ==
[~2022-08-07] MED LIST changes: +ACET-2079 PO
== END | disposition home or self-care (01) ==
LOC: RAH 12:58
PROVIDERS: ATTEND Physician Assistant
DX: N60.01 Solitary cyst of right breast (principal); R92.1 Mammographic calcification found on diagnostic imaging of breast
CPT/HCPCS: 76641; 77066

== ENCOUNTER → 2023-01-04 | Outpatient (CLI) | payer OTHER, MEDICARE | END | disposition home or self-care (01) | LOC: RAH 12:26 | PROVIDERS: ATTEND Obstetrics & Gynecology | DX: N63.41 Unspecified lump in right breast, subareolar (principal) | CPT/HCPCS: 76641 ==

== ENCOUNTER → 2024-04-21 | Outpatient (CLI) | payer OTHER, MEDICARE ==
[~2024-04-21] MED LIST changes: +ONDA-243 PO; -ONDA4TAB10 PO; +ROPI4TAB41 PO; -ROPI4TAB6 PO
== END | disposition home or self-care (01) ==
LOC: SHCH 13:46
PROVIDERS: ATTEND Internal Medicine
DX: I08.0 Rheumatic disorders of both mitral and aortic valves (principal); R07.9 Chest pain, unspecified; R94.31 Abnormal electrocardiogram [ECG] [EKG]; E11.9 Type 2 diabetes mellitus without complications
CPT/HCPCS: 93306; 93356

== ENCOUNTER 2024-05-14 22:39 | Emergency (ER) | payer OTHER, MEDICARE ==
[~2024-05-14] VITALS: Ht 157.5 cm; Wt 116.1 kg
[2024-05-14 23:05] LABS: APPEARANCE,URINE CLEAR (CLEAR); BILIRUBIN,URINE NEGATIVE (NEGATIVE); COLOR,URINE LIGHT-YELLOW (YELLOW); GLUCOSE, URINE (UA) >=1000 mg/dL (NEGATIVE); KETONES,URINE NEGATIVE (NEGATIVE); LEUKOCYTE ESTERASE ,URINE NEGATIVE Leu/uL (NEGATIVE); NITRATE,URINE NEGATIVE (NEGATIVE); OCCULT BLOOD,URINE NEGATIVE (NEGATIVE); PH,URINE 5.5 (5.0-8.0); PROTEIN,URINE NEGATIVE (NEGATIVE); UROBILINOGEN,URINE 0.2 mg/dL (0.2-1.0)
[2024-05-14 23:06] LABS: ADD UA MICROSCOPIC YES
[2024-05-14 23:08] LABS: BASOPHILS # (AUTO) 0.03 K/uL (0.00-0.20); BASOPHILS % (AUTO) 0.4 % (0.0-5.0); EOSINOPHILS # (AUTO) 0.58 K/uL (0.00-0.70); EOSINOPHILS % (AUTO) 7.5 % (0.0-8.0); HEMATOCRIT 39.2 % (36-48); IMMATURE GRANULOCYTE ABSOLUTE 0.03 K/uL (0-1); LYMPHOCYTES # (AUTO) 2.6 K/uL (1.0-4.8); LYMPHOCYTES % (AUTO) 33.7 % (21.0-51.0); MEAN CORPUSCULAR HEMOGLOBIN 30.7 pg (27.0-33.0); MEAN CORPUSCULAR HGB CONC 35.2 g/dL (32.0-36.0); MEAN CORPUSCULAR VOLUME 87.3 fL (79-99); MONOCYTES # (AUTO) 0.7 K/uL (0.1-1.0); MONOCYTES % (AUTO) 8.5 % (3.0-13.0); NEUTROPHILS # (AUTO) 3.9 K/uL (1.8-7.7); NEUTROPHILS % (AUTO) 49.5 % (40.0-77.0); PLATELET COUNT (AUTO) 248 K/uL (130-400); RED BLOOD CELL COUNT(AUTO) 4.49 MIL/uL (4.00-5.50); RED CELL DISTRIBUTION WIDTH 12.6 % (11.0-15.5); WHITE BLOOD COUNT (AUTO) 7.8 K/uL (4.8-10.8)
[2024-05-14] MEDS: 0.9%NACL 1000ML 1,000 ML IV ONE ×2 (23:09→23:57)
[2024-05-14 23:19] LABS: BACTERIA,URINE Rare /HPF (None Seen); RBC,URINE 0-1 /HPF (0-1); SQUAMOUS EPITHELIAL CELL,UR Rare /HPF (0-2)
[2024-05-14 23:29] LABS: ALBUMIN 2.9 g/dL (3.5-5.0); BILIRUBIN,TOTAL 0.8 mg/dL (0.2-1.0); CREATININE 0.8 mg/dL (0.5-1.0); POTASSIUM 5.1 mmol/L (3.5-5.1); TOTAL PROTEIN, SERUM 6.8 g/dL (6.0-8.3)
[2024-05-14] MEDS: KETOROLAC 30MG VIAL (30MG/ML) ONE (23:46)
[2024-05-14] MEDS: INSULIN HUMULIN R 100 UNIT/ML 3ML IV ONE (23:56)
[2024-05-15] MEDS: KETOROLAC 30MG VIAL (30MG/ML) IVP ONE (00:28)
[2024-05-15] MEDS: MORPHINE 2 MG SYG IVP ONE (03:36)
[2024-05-15] MEDS: ONDANSETRON 4MG INJ IVP ONE (03:36)
[2024-05-15 03:37] VITALS: BP 112/70; PULSE 80; RESP 18; O2SAT 99
== END 2024-05-15 04:49 | disposition home or self-care (01) ==
LOC: EDH 22:39
DX: E11.65 Type 2 diabetes mellitus with hyperglycemia (principal); E78.00 Pure hypercholesterolemia, unspecified; I10 Essential (primary) hypertension; Z79.2 Long term (current) use of antibiotics; Z79.84 Long term (current) use of oral hypoglycemic drugs; Z79.899 Other long term (current) drug therapy
CPT/HCPCS: 99285; 96374; 96361; 96375 ×2; 80053; 85025; 82948 ×3; 83605; 82010; 81001; 36415; J1815; J7030 ×2; J1885; J2270; J2405

== ENCOUNTER 2024-09-18 15:10 | Emergency (ER) | payer OTHER, MEDICARE ==
[~2024-09-18] VITALS: Ht 157.5 cm; Wt 111.6 kg
[2024-09-18 15:23] VITALS: BP 123/70; PULSE 89; RESP 18; TEMP 98; O2SAT 97
[2024-09-18] MEDS ORDERED: ACET-2079 PO (16:03)
[2024-09-18] MEDS: acetaMINOPHEN WITH coDEINE 1 TAB TAB PO ONE (16:30)
[2024-09-18] MEDS: ketOROlac 30MG VIAL (30MG/ML) IVP ONE (16:30)
== END 2024-09-18 17:31 | disposition home or self-care (01) ==
LOC: EDH 15:10
DX: S92.512A Displaced fracture of proximal phalanx of left lesser toe(s), initial encounter for closed fracture (principal); E11.9 Type 2 diabetes mellitus without complications; E78.00 Pure hypercholesterolemia, unspecified; I10 Essential (primary) hypertension; Z79.84 Long term (current) use of oral hypoglycemic drugs; Z79.899 Other long term (current) drug therapy; Z90.49 Acquired absence of other specified parts of digestive tract; Z90.710 Acquired absence of both cervix and uterus; X58.XXXA Exposure to other specified factors, initial encounter; Y93.89 Activity, other specified; Y92.89 Other specified places as the place of occurrence of the external cause; Y99.8 Other external cause status
CPT/HCPCS: 99284; 96374; 73630; J1885

== ENCOUNTER 2024-11-22 14:21 | Emergency (ER) | payer OTHER, MEDICARE ==
[~2024-11-22] VITALS: Ht 157.5 cm; Wt 119.7 kg
[2024-11-22 15:03] VITALS: TEMP 98.8
[2024-11-22 15:10] LABS: BASOPHILS # (AUTO) 0.04 K/uL (0.00-0.20); BASOPHILS % (AUTO) 0.7 % (0.0-5.0); EOSINOPHILS # (AUTO) 0.65 K/uL (0.00-0.70); HEMATOCRIT 38.3 % (36-48); IMMATURE GRANULOCYTE ABSOLUTE 0.03 K/uL (0-1); LYMPHOCYTES # (AUTO) 1.3 K/uL (1.0-4.8); LYMPHOCYTES % (AUTO) 24.4 % (21.0-51.0); MEAN CORPUSCULAR HEMOGLOBIN 29.2 pg (27.0-33.0); MEAN CORPUSCULAR HGB CONC 33.2 g/dL (32.0-36.0); MONOCYTES # (AUTO) 0.6 K/uL (0.1-1.0); MONOCYTES % (AUTO) 11.3 % (3.0-13.0); NEUTROPHILS # (AUTO) 2.8 K/uL (1.8-7.7); PLATELET COUNT (AUTO) 229 K/uL (130-400); RED BLOOD CELL COUNT(AUTO) 4.35 MIL/uL (4.00-5.50); RED CELL DISTRIBUTION WIDTH 13.2 % (11.0-15.5); WHITE BLOOD COUNT (AUTO) 5.4 K/uL (4.8-10.8)
[2024-11-22 15:17] LABS: CREATININE 0.7 mg/dL (0.5-1.0); POTASSIUM 3.8 mmol/L (3.5-5.1)
--- NOTE | 2024-11-22 15:18 | HMCIMG ---
INDICATION: CHEST PAIN TECHNIQUE: CHEST 1VW COMPARISON: 08/03/2021 FINDINGS/IMPRESSION: Prominent bilateral interstitial markings which may represent bronchitis or vascular congestion in the proper clinical setting. Cardiac silhouette is within normal limits. Stable osseous structures. The visualized upper abdomen appears unremarkable.
[2024-11-22 15:22] LABS: COVID19 (SARS ANTIGEN RAPID) PRESUMPTIVE NEGATIVE (NEGATIVE); INFLUENZA TYPE A Negative For Type A (NEGATIVE); INFLUENZA TYPE B Negative For Type B (NEGATIVE)
[2024-11-22 15:30] LABS: INR 0.95 (0.85-1.15); PROTHROMBIN TIME 10.7 SEC (9.6-11.6)
[2024-11-22 15:31] LABS: PARTIAL THROMBOPLASTIN TIME 23.8 SEC (26.3-35.5)
--- NOTE | 2024-11-22 15:38 | EKG ---
[facility] Test Date: 2024-11-22 Test Time: 14:28:19 Pat Name: CHAVO MARIO Department: ED Room: Gender: F Waste Picker: [id number] : 1965 Requested By: MARK DONOHUE Order Number: [id number] Reading MD: Marsha Palma Measurements Intervals [place] Rate: 82 P: 60 TN: 170 QRS: 8 QRSD: 92 T: 34 QT: 373 QTc: 437 Interpretive Statements Sinus rhythm Compared to ECG 06/17/2022 22:10:40 No significant changes Electronically Signed On 11-23-2024 10:08:02 WEB APPLICATIONS PROGRAMMER by Marsha Palma Please click the below link to view image of tracing.
[2024-11-22] MEDS: ASPIRIN 325MG TAB PO ONE (15:46)
[2024-11-22] MEDS: Solu-medROL 125MG VIAL IVP ONE (15:47)
[2024-11-22] MEDS: ondanSETRON 4MG INJ IVP ONE (16:08)
[2024-11-22] MEDS: guaiFENesin SUGAR-FREE 100 MG/5 ML UDCUP PO ONE (16:08)
[2024-11-22] MEDS: IpraTROPium/alBUTERol SULFATE 3 ML SOLUTION IH PRN (16:22)
[2024-11-22 16:25] VITALS: PULSE 77; RESP 20
[2024-11-22 16:30] VITALS: BP 145/72; O2SAT 96
[2024-11-22 17:31] VITALS: PULSE 98; RESP 20
[2024-11-22] MEDS ORDERED: AZIT250T PO (17:46)
[2024-11-22] MEDS ORDERED: ALBUHFA IH (17:46)
--- NOTE | 2024-11-22 17:46 | ERN ---
ED Note History of Present Illness Stated Complaint: CP Chief Complaint: Chest Pain Time Seen by MD: 14:29 Time Seen by Midlevel: 14:29 Dictation: The patient is a 59-year-old female with history of diabetes, hypertension who presents to the emergency with complaints of productive cough, congestion, chest pain with coughing onset yesterday. Patient denies any fevers but reports occasional chills. Allergies: Coded Allergies: No Known Drug Allergies (Unverified Allergy, Unknown, 01/10/16) Home Meds Active Scripts Albuterol Sulfate (Ventolin Hfa/Proventil Hfa/Proair Hfa) 90 Mcg Puff, 1-2 PUFF IH Q4H PRN for SHORTNESS OF BREATH for 5 Days, #1 INH 0 Refills PHARMACY TO DISPENSE 1 INHALER FOR USE Prov:JAME LOZOYA [facility] 11/22/24 Azithromycin (Zithromax) 250 Mg Tablet, 250 MG PO AD for 5 Days, #6 TAB Take 2 250 mg tablets on day 1, then take 1 250mg tablets daily for 4 days Prov:JAME LOZOYA [facility] 11/22/24 Acetaminophen with Codeine (Acetaminophen-Cod #3 Tablet) 300 Mg-30 Mg Tablet, 1 TAB PO Q4H PRN for Moderate to severe pain, #15 TAB 0 Refills Prov:JANE THOMPSON NP 09/18/24 Acetaminophen with Codeine (Acetaminophen-Cod #3 Tablet) 1 Each Tablet, 1-2 TAB PO Q6H PRN for SEVERE PAIN (7-10), #12 TAB 0 Refills Prov:MITESH MCDONOUGH MD 06/17/22 Metoclopramide HCl (Reglan) 10 Mg Tablet, 10 MG PO TIDP, #20 TAB 0 Refills Prov:DAVID ARCOS MD 06/22/21 Pantoprazole Sodium (Pantoprazole Sodium) 40 Mg Tablet.dr, 40 MG PO DAILY, #10 TAB 0 Refills Prov:DAVID ARCOS MD 06/22/21 Ondansetron (Ondansetron Odt) 4 Mg Tab.rapdis, 4 MG PO Q6HPRN, #20 TAB 0 Refills Prov:DAVID ARCOS MD 06/22/21 Dicyclomine HCl (Bentyl) 20 Mg Tab, 20 MG PO Q6HPRN, #20 TAB 0 Refills Prov:DAVID ARCOS MD 06/22/21 Levofloxacin (Levaquin) 500 Mg Tablet, 500 MG PO DAILY for 10 Days, #10 TAB Prov:VICENTE KO Jr., MD 04/12/20 Insulin Glargine,Hum.rec.anlog (Lantus Solostar) 100 Unit/1 Ml Insuln.pen, 20 UNIT SQ HS for 30 Days, #1 PACK Prov:VICENTE KO Jr., MD 04/12/20 Reported Medications Exenatide Microspheres (Bydureon Pen) 2 Mg/0.65 Ml Pen.injctr, 2 MG SQ QWEEK 04/10/20 Naproxen (Naproxen) 500 Mg Tablet, 500 MG PO BID, TAB 04/10/20 [Tresiba Flex Touch] No Conflict Check, 36 UNITS SQ AM 07/27/19 Ropinirole HCl (Ropinirole HCl) 4 Mg Tablet, 4 MG PO BID, TAB 07/27/19 Amlodipine Besylate (Amlodipine Besylate) 5 Mg Tablet, 5 MG PO AM, TAB 07/27/19 Metformin HCl (Metformin HCl) 1,000 Mg Tablet, 1000 MG PO BID, TAB 07/27/19 Past Medical History Past Medical History: Diabetes-Type II, High Cholesterol, Hypertension Surgical History: Appendectomy, Hysterectomy, Other Surgical History Other: BACK SX, ROTATOR CUFF, AND R SHOULDER. Social History: Other History: Not Applicable RN Note Reviewed/Agreed w/PFSH: Yes Review of System Dictation Constitutional: Negative for fever,chills, and weight loss Eyes: Negative for injury, pain,redness, and discharge ENT: Negative for injury,pain or swelling Cardiovascular: Negative for , palpitations, and edema positive for chest pain Respiratory: Positive for shortness of breath, cough, wheezing Abdomen/GI: Negative for abdominal pain, nausea, vomiting, diarrhea, and constip ation Back: Negative for injury and pain : Negative for injury, bleeding and discharge MS/Extremity: Negative for injury and deformity Skin: Negative for rash, and discoloration Neuro: Negative for headache, weakness, numbness, tingling, and seizure Psych: Negative for suicide ideation, homicidal ideation, and hallucinations Initial Vital Sign VS Vital Signs Date Time Temp Pulse Resp B/P (MAP) Pulse Ox O2 Delivery O2 Flow Rate FiO2 12/25/24 14:23 98.6 90 18 95 11/22/24 15:03 110/71 Room Air* 0 21 Physical Exam Dictation Vital Signs reviewed General Appearance: Alert, oriented x 3, no acute distress, well developed, nourished. Head and Face: non-traumatic. Eyes: PERRL, pink conjunctivas, eyelid no trauma, anterior chamber with arcus senilis. Ears: Pinnas intact and no signs of trauma or erythema ear canals clear and no discharge TM no erythema Nose: No discharge, no bleeding. Oropharynx: Mouth normal, tongue pink. pharynx clear,no erythema, tonsils no exudates, no abscesses noted, mucous membrane moist Neck: Supple, non-tender, no thyromegaly, no masses, no JVD, no bruits Breast:Deferred Chest:+ tenderness, no crepitus, no paradoxical movement, no retractions Lungs:Clear, well-ventilated, symmetric, no rales, + wheezing, no rhonchi, no stridor, good breath sounds bilaterally Heart: Regular rate, regular rhythm, no murmur, no gallops Vascular: no peripheral edema, Abdomen: Soft, positive bowel sounds, nondistended, no guarding, nontender, no rebound, no masses no hepatomegaly, no splenomegaly, no Rodriguez's sign, no hernias. Rectal: Deferred Genital: Deferred Neurological: Normal speech, motor function intact, sensory function intact Musculoskeletal: Neck nontender, full range of motion, back nontender, full range of motion, Extremities: nontender, full range of motion Skin: Color pink, dry, no turgor, no rash, no lacerations, no abrasions, no contusions. Lymphatic: Deferred Results (Laboratory/Radiology) Laboratory/Radiology REASON: CHEST PAIN ORDERING PHYSICIAN: MARK DONOHUE MD PROCEDURE: CXR1VW - CHEST 1VW INDICATION: CHEST PAIN TECHNIQUE: CHEST 1VW COMPARISON: 08/03/2021 FINDINGS/IMPRESSION: Prominent bilateral interstitial markings which may represent bronchitis or vascular congestion in the proper clinical setting. Cardiac silhouette is within normal limits. Stable osseous structures. The visualized upper abdomen appears unremarkable. Labs Reviewed?: Yes EKG: (+) rhythm (Sinus rhythm) EKG Comment: EKG 11/22/2024 1428 ventricular rate 82, regular rate and rhythm, normal sinus rhythm, no STEMI ED Course ED Course Medical Decision Making MDM The patient is a 59-year-old female with history of diabetes, hypertension who presents to the emergency with complaints of productive cough, congestion, chest pain with coughing onset yesterday. Patient denies any fevers but reports occasional chills. CBC showed no leukocytosis, no anemia, chemistry showed negative troponin, elevated blood glucose, chest x-ray consistent with bronchitis. Patient reports improvement after respiratory treatments. Discussed with the patient the possibility of admission to the hospital. At this time patient would like to be discharged and follow up with her primary doctor. Patient in no acute distress, O2 saturations 97 on room air. Differential diagnosis: Pneumonia, COVID-19 infection, upper respiratory infection, ACS Need for hospitalization: Patient does not meet criteria for hospitalization. There are no social concerns with this patient. DX & DISP Disposition: Discharge Departure Impression: Primary Impression: Bronchitis Additional Impressions: Chest pain, Cough, Uncontrolled diabetes mellitus with hyperglycemia Condition: Stable Scripts Albuterol Sulfate (Ventolin Hfa/Proventil Hfa/Proair Hfa) 90 Mcg Puff 1-2 PUFF IH Q4H PRN for SHORTNESS OF BREATH for 5 Days, #1 INH 0 Refills PHARMACY TO DISPENSE 1 INHALER FOR USE Prov: JAME LOZOYA 11/22/24 Azithromycin (Zithromax) 250 Mg Tablet 250 MG PO AD for 5 Days, #6 TAB Take 2 250 mg tablets on day 1, then take 1 250mg tablets daily for 4 days Prov: JAME LOZOYA 11/22/24 Additional Instructions: Please follow up with your primary doctor in 1-2 days. If symptoms worsen please return to ER. FOLLOW-UP WITH PRIMARY CARE PROVIDER IN 1 TO 2 DAYS. TAKE MEDICATIONS DIRECTED HERE IN THE EMERGENCY ROOM. OKAY TO CONTINUE HOME MEDICATIONS UNLESS OTHERWISE DISCUSSED DURING YOUR VISIT IN THE EMERGENCY ROOM TODAY. RETURN TO YOUR NEAREST EMERGENCY ROOM IF SYMPTOMS WORSEN OR IF THERE IS NO IMPROVEMENT. CALL 911 IF YOU NEED IMMEDIATE ASSISTANCE. TAKE TYLENOL OR MOTRIN [id number] NEEDED AND IF NO CONTRAINDICATIONS ARE PRESENT. INCREASE ORAL HYDRATION. A WOUND CULTURE OR URINE CULTURE WAS ORDERED HERE IN THE EMERGENCY ROOM DEPARTMENT PLEASE FOLLOW-UP WITH PRIMARY CARE PROVIDER AND ADVISE THEM TO GET REPEAT PORTS FROM OUR FACILITY. IF YOU HAD ANY DENAE WRAP/SPLINTS THAT WERE APPLIED HERE, PLEASE DO NOT REMOVE THEM UNTIL YOU SEE YOUR PRIMARY CARE OR SPECIALTY. Referrals: PATRICIA ANTUNEZ (PCP) Time of Disposition: 17:45 I have reviewed the case, and I agree with, Diagnosis and Plan I performed this substantive portion of this visit. I have reviewed and personally made and approve the management plan that is documented in the note by myself or the YAHAIRA. I acknowledge full responsibility for the patient's management plan. JAME LOZOYA Nov 22, 2024 17:46 MARK DONOHUE MD Nov 27, 2024 14:01
== END 2024-11-22 17:56 | disposition home or self-care (01) ==
LOC: EDH 14:21
DX: J40 Bronchitis, not specified as acute or chronic (principal); R07.89 Other chest pain; E11.65 Type 2 diabetes mellitus with hyperglycemia; E78.00 Pure hypercholesterolemia, unspecified; I10 Essential (primary) hypertension; Z79.84 Long term (current) use of oral hypoglycemic drugs; Z79.899 Other long term (current) drug therapy; Z90.49 Acquired absence of other specified parts of digestive tract; Z90.710 Acquired absence of both cervix and uterus; Z20.822 Contact with and (suspected) exposure to COVID-19
CPT/HCPCS: 94640 ×2; 99285; 84484; 80048; 83880; 85025; 85610; 85730; 87804 ×2; 87426; 36415; 71045; 96374; 96375; 93005; J2919; J2405

== ENCOUNTER 2024-11-27 22:20 | Emergency (ER) | payer OTHER, MEDICARE ==
[~2024-11-27] VITALS: Ht 157.5 cm; Wt 112.5 kg
[~2024-11-27 22:20] MED LIST changes: +ALBUHFA IH; +AZIT250T PO
[2024-11-27 22:23] VITALS: TEMP 97.1
--- NOTE | 2024-11-27 22:32 | EKG ---
[facility] Test Date: 2024-11-27 Test Time: 22:26:39 Pat Name: CHAVO MARIO Department: ED Room: Gender: F Epic Manager: [id number] : [id number] Requested By: JAME LOZOYA Order Number: [id number] Reading MD: Jamar Green Measurements Intervals [place] Rate: 74 P: 10 MA: 154 QRS: -16 QRSD: 88 T: 52 QT: 424 QTc: 471 Interpretive Statements Sinus rhythm Compared to ECG 11/22/2024 14:28:19 No significant changes Electronically Signed On 11-28-2024 15:44:50 ASSISTANT LABORATORY DIRECTOR by Jamar Green Please click the below link to view image of tracing.
[2024-11-27] MEDS: Solu-medROL 125MG VIAL IVP ONE (22:56)
[2024-11-27] MEDS: ASPIRIN 325MG TAB PO ONE (22:56)
[2024-11-27 23:11] LABS: COVID19 (SARS ANTIGEN RAPID) PRESUMPTIVE NEGATIVE (NEGATIVE); INFLUENZA TYPE A Negative For Type A (NEGATIVE); INFLUENZA TYPE B Negative For Type B (NEGATIVE)
[2024-11-27 23:17] LABS: BASOPHILS # (AUTO) 0.04 K/uL (0.00-0.20); BASOPHILS % (AUTO) 0.4 % (0.0-5.0); EOSINOPHILS # (AUTO) 0.68 K/uL (0.00-0.70); EOSINOPHILS % (AUTO) 6.9 % (0.0-8.0); HEMATOCRIT 39.5 % (36-48); IMMATURE GRANULOCYTE ABSOLUTE 0.12 K/uL (0-1); LYMPHOCYTES # (AUTO) 3.2 K/uL (1.0-4.8); LYMPHOCYTES % (AUTO) 32.3 % (21.0-51.0); MEAN CORPUSCULAR HEMOGLOBIN 29.1 pg (27.0-33.0); MEAN CORPUSCULAR HGB CONC 33.9 g/dL (32.0-36.0); MEAN CORPUSCULAR VOLUME 85.9 fL (79-99); MONOCYTES # (AUTO) 0.8 K/uL (0.1-1.0); MONOCYTES % (AUTO) 8.5 % (3.0-13.0); NEUTROPHILS % (AUTO) 50.7 % (40.0-77.0); PLATELET COUNT (AUTO) 270 K/uL (130-400); RED CELL DISTRIBUTION WIDTH 13.3 % (11.0-15.5); WHITE BLOOD COUNT (AUTO) 9.9 K/uL (4.8-10.8)
[2024-11-27] MEDS: IpraTROPium/alBUTERol SULFATE 3 ML SOLUTION IH ONE (23:22)
[2024-11-27 23:25] VITALS: PULSE 72; RESP 18; RESP 19; O2SAT 97
[2024-11-27 23:29] LABS: CREATININE 0.6 mg/dL (0.5-1.0); POTASSIUM 3.4 mmol/L (3.5-5.1)
[2024-11-27 23:33] LABS: ALBUMIN 2.8 g/dL (3.5-5.0); BILIRUBIN,DIRECT 0.1 mg/dL (0.0-0.3); BILIRUBIN,TOTAL 0.6 mg/dL (0.2-1.0); MAGNESIUM 1.7 mg/dL (1.80-2.40); TOTAL PROTEIN, SERUM 5.9 g/dL (6.0-8.3)
[2024-11-27 23:58] LABS: B-TYPE NATRIURETIC PEPTIDE < 5 pg/mL (0-100)
[2024-11-28] MEDS: PoTASSium BIcarbonate/CIT AC 25 MEQ TABLET.EFF PO ONE (00:45)
[2024-11-28] MEDS: MAGNESIUM OXIDE 400 MG TABLET PO ONE (00:45)
[2024-11-28 00:51] VITALS: BP 125/70; O2SAT 97
[2024-11-28] MEDS: IpraTROPium/alBUTERol SULFATE 3 ML SOLUTION IH ONE (01:12)
[2024-11-28 01:13] VITALS: PULSE 73; RESP 20
[2024-11-28] MEDS ORDERED: BENZ-39 PO (01:14)
--- NOTE | 2024-11-28 01:15 | ERN ---
ED Note History of Present Illness Stated Complaint: C/O CP WITH COUGH, CONGESTION, SORE THROAT Chief Complaint: Chest Pain Time Seen by MD: 22:25 Time Seen by Midlevel: 22:25 Dictation: The patient is a 59-year-old female with a history of diabetes, hypertension, hyperlipidemia who presents to the emergency department with complaints of chest pain, dry cough, sore throat for one week. Allergies: Coded Allergies: No Known Drug Allergies (Unverified Allergy, Unknown, 01/10/16) Home Meds Active Scripts Albuterol Sulfate (Ventolin Hfa/Proventil Hfa/Proair Hfa) 90 Mcg Puff, 1-2 PUFF IH Q4H PRN for SHORTNESS OF BREATH for 5 Days, #1 INH 0 Refills PHARMACY TO DISPENSE 1 INHALER FOR USE Prov:JAME LOZOYA [facility] 11/22/24 Azithromycin (Zithromax) 250 Mg Tablet, 250 MG PO AD for 5 Days, #6 TAB Take 2 250 mg tablets on day 1, then take 1 250mg tablets daily for 4 days Prov:JAME LOZOYA [facility] 11/22/24 Acetaminophen with Codeine (Acetaminophen-Cod #3 Tablet) 300 Mg-30 Mg Tablet, 1 TAB PO Q4H PRN for Moderate to severe pain, #15 TAB 0 Refills Prov:JANE THOMPSON NP 09/18/24 Acetaminophen with Codeine (Acetaminophen-Cod #3 Tablet) 1 Each Tablet, 1-2 TAB PO Q6H PRN for SEVERE PAIN (7-10), #12 TAB 0 Refills Prov:MITESH MCDONOUGH MD 06/17/22 Metoclopramide HCl (Reglan) 10 Mg Tablet, 10 MG PO TIDP, #20 TAB 0 Refills Prov:DAVID ARCOS MD 06/22/21 Pantoprazole Sodium (Pantoprazole Sodium) 40 Mg Tablet.dr, 40 MG PO DAILY, #10 TAB 0 Refills Prov:DAVID ARCOS MD 06/22/21 Ondansetron (Ondansetron Odt) 4 Mg Tab.rapdis, 4 MG PO Q6HPRN, #20 TAB 0 Refills Prov:DAVID ARCOS MD 06/22/21 Dicyclomine HCl (Bentyl) 20 Mg Tab, 20 MG PO Q6HPRN, #20 TAB 0 Refills Prov:DAVID ARCOS MD 06/22/21 Levofloxacin (Levaquin) 500 Mg Tablet, 500 MG PO DAILY for 10 Days, #10 TAB Prov:VICENTE KO Jr., MD 04/12/20 Insulin Glargine,Hum.rec.anlog (Lantus Solostar) 100 Unit/1 Ml Insuln.pen, 20 UNIT SQ HS for 30 Days, #1 PACK Prov:VICENTE KO Jr., MD 04/12/20 Reported Medications Exenatide Microspheres (Bydureon Pen) 2 Mg/0.65 Ml Pen.injctr, 2 MG SQ QWEEK 04/10/20 Naproxen (Naproxen) 500 Mg Tablet, 500 MG PO BID, TAB 04/10/20 [Tresiba Flex Touch] No Conflict Check, 36 UNITS SQ AM 07/27/19 Ropinirole HCl (Ropinirole HCl) 4 Mg Tablet, 4 MG PO BID, TAB 07/27/19 Amlodipine Besylate (Amlodipine Besylate) 5 Mg Tablet, 5 MG PO AM, TAB 07/27/19 Metformin HCl (Metformin HCl) 1,000 Mg Tablet, 1000 MG PO BID, TAB 07/27/19 Past Medical History Past Medical History: Bronchitis, Diabetes-Type II, High Cholesterol, H ypertension Surgical History: Appendectomy, Hysterectomy, Other Surgical History Other: BACK SX, ROTATOR CUFF, AND R SHOULDER. Social History: Other History: Not Applicable RN Note Reviewed/Agreed w/PFSH: Yes Review of System Dictation Constitutional: Negative for fever,chills, and weight loss Eyes: Negative for injury, pain,redness, and discharge ENT: Negative for injury,pain or swelling Cardiovascular: Negative for palpitations, and edema positive for chest pain Respiratory: Positive for cough, shortness of breath, wheezing Abdomen/GI: Negative for abdominal pain, nausea, vomiting, diarrhea, and constipation Back: Negative for injury and pain : Negative for injury, bleeding and discharge MS/Extremity: Negative for injury and deformity Skin: Negative for rash, and discoloration Neuro: Negative for headache, weakness, numbness, tingling, and seizure Psych: Negative for suicide ideation, homicidal ideation, and hallucinations Initial Vital Sign VS Vital Signs Date Time Temp Pulse Resp B/P (MAP) Pulse Ox O2 Delivery O2 Flow Rate FiO2 11/27/24 22:23 97.2 80 20 133/84 95 Room Air 11/27/24 22:50 2 28 Physical Exam Dictation Vital Signs reviewed General Appearance: Alert, oriented x 3, no acute distress, well developed, nourished. Head and Face: non-traumatic. Eyes: PERRL, pink conjunctivas, eyelid no trauma, anterior chamber with arcus senilis. Ears: Pinnas intact and no signs of trauma or erythema ear canals clear and no discharge TM no erythema Nose: No discharge, no bleeding. Oropharynx: Mouth normal, tongue pink. pharynx clear,no erythema, tonsils no exudates, no abscesses noted, mucous membrane moist Neck: Supple, non-tender, no thyromegaly, no masses, no JVD, no bruits Breast:Deferred Chest:No tenderness, no crepitus, no paradoxical movement, no retractions Lungs:Clear, well-ventilated, symmetric, no rales, + wheezing, no rhonchi, no stridor, good breath sounds bilaterally Heart: Regular rate, regular rhythm, no murmur, no gallops Vascular: no peripheral edema, Abdomen: Soft, positive bowel sounds, nondistended, no guarding, nontender, no rebound, no masses no hepatomegaly, no splenomegaly, no Rodriguez's sign, no hernias. Rectal: Deferred Genital: Deferred Neurological: Normal speech, motor function intact, sensory function intact Musculoskeletal: Neck nontender, full range of motion, back nontender, full range of motion, Extremities: nontender, full range of motion Skin: Color pink, dry, no turgor, no rash, no lacerations, no abrasions, no contusions. Lymphatic: Deferred Results (Laboratory/Radiology) Laboratory/Radiology Laboratory Tests Test 11/27/24 22:43 11/27/24 23:10 Influenza Type A Antigen Negative For Type A Influenza Type B Antigen Negative For Type B SARS-CoV-2 Antigen (Rapid) PRESUMPTIVE NEGATIVE White Blood Count 9.9 K/uL (4.8-10.8) Red Blood Count 4.60 MIL/uL (4.00-5.50) Hemoglobin 13.4 g/dL (12.0-16.0) Hematocrit 39.5 % (36-48) Mean Corpuscular Volume 85.9 fL (79-99) Mean Corpuscular Hemoglobin 29.1 pg (27.0-33.0) Mean Corpuscular Hemoglobin Concent 33.9 g/dL (32.0-36.0) Red Cell Distribution Width 13.3 % (11.0-15.5) Platelet Count 270 K/uL (130-400) Mean Platelet Volume 9.1 fL (7.5-10.5) Immature Granulocyte % (Auto) 1.2 % (0-1) H Neutrophils (%) (Auto) 50.7 % (40.0-77.0) Lymphocytes (%) (Auto) 32.3 % (21.0-51.0) Monocytes (%) (Auto) 8.5 % (3.0-13.0) Eosinophils (%) (Auto) 6.9 % (0.0-8.0) Basophils (%) (Auto) 0.4 % (0.0-5.0) Neutrophils # (Auto) 5.0 K/uL (1.8-7.7) Lymphocytes # (Auto) 3.2 K/uL (1.0-4.8) Monocytes # (Auto) 0.8 K/uL (0.1-1.0) Eosinophils # (Auto) 0.68 K/uL (0.00-0.70) Basophils # (Auto) 0.04 K/uL (0.00-0.20) Absolute Immature Granulocyte (auto 0.12 K/uL (0-1) Nucleated Red Blood Cells 0.0 % (0.0-0.19) Sodium Level 143 mmol/L (136-145) Potassium Level 3.4 mmol/L (3.5-5.1) L Chloride Level 105 mmol/L (101-111) Carbon Dioxide Level 33 mmol/L (21-32) H Blood Urea Nitrogen 19 mg/dL (7-18) H Creatinine 0.6 mg/dL (0.5-1.0) Glomerular Filtration Rate Calc 102 mL/min (>90) Random Glucose 91 mg/dL (70-105) Total Calcium 8.9 mg/dL (8.5-10.1) Magnesium Level 1.70 mg/dL (1.80-2.40) L Total Bilirubin 0.6 mg/dL (0.2-1.0) Direct Bilirubin 0.1 mg/dL (0.0-0.3) Aspartate Amino Transf (AST/SGOT) 19 U/L (10-37) Alanine Aminotransferase (ALT/SGPT) 34 U/L (12-78) Alkaline Phosphatase 126 U/L (50-136) Total Creatine Kinase 73 U/L (21-232) # Troponin I High Sensitivity 9 ng/L (4-50) B-Type Natriuretic Peptide < 5 pg/mL (0-100) Total Protein 5.9 g/dL (6.0-8.3) L Albumin 2.8 g/dL (3.5-5.0) L Lipase 50 U/L (16-77) Labs Reviewed?: Yes EKG: (+) rhythm EKG Comment: EKG 11/27/20242225 ventricular rate 74, regular rate and rhythm, normal sinus rhythm, no STEMI ED Course ED Course Orders Procedure Category Date Status Time Cbc With Differential LAB 11/27/24 Complete 22:25 B-Type Natriuretic LAB 11/27/24 Complete Peptide 22:25 Chest 1vw RAD 11/27/24 Taken 22:25 12 Lead Ekg Tracing- EKG 11/27/24 Complete Technical 22:25 Magnesium LAB 11/27/24 Complete 22:25 Creatine Kinase, Total LAB 11/27/24 Complete 22:25 Troponin I High LAB 11/27/24 Complete Sensitivity 22:25 Urinalysis Profile LAB 11/27/24 Logged 22:25 Basic Metabolic Panel LAB 11/27/24 Complete 22:25 Influenza Type A & B, LAB 11/27/24 Complete Rapid 22:26 Covid19 (Sars Antigen LAB 11/27/24 Complete Rapid) 22:26 Methylprednisolone PHA 11/27/24 Complete Succ 125mg (Solu-Medr 23:00 Ipratropium/Albuterol PHA 11/27/24 Complete Neb (Duoneb) 23:00 Aspirin 325mg Tab PHA 11/27/24 Complete (Aspirin 325mg Tab) 23:00 Hepatic Function Panel LAB 11/27/24 Complete 22:25 Lipase LAB 11/27/24 Complete 22:25 Rapid (Group A Strep) LAB 11/27/24 Logged 23:00 Ipratropium/Albuterol PHA 11/28/24 Complete Neb (Duoneb) 01:00 Magnesium Oxide PHA 11/28/24 Complete (Mag-Ox) 01:00 Potassium Bicarb/Cit PHA 11/28/24 Complete Ac 25meq (K-Lyte Ta 01:00 Current Medications Medications (Trade) Dose Ordered Sig/David Route PRN Reason Start Time Stop Time Status Last Admin Dose Admin Albuterol (DUOneb) 1 UDVIAL ONCE ONCE IH 11/27/24 23:00 11/27/24 23:01 DC 11/27/24 23:22 Albuterol (DUOneb) 1 UDVIAL ONCE ONCE IH 11/28/24 01:00 11/28/24 01:01 DC Aspirin (Aspirin 325mg Tab) 325 mg ONCE ONCE PO 11/27/24 23:00 11/27/24 23:01 DC 11/27/24 22:56 Magnesium Oxide (Mag-Ox) 400 mg ONCE ONCE PO 11/28/24 01:00 11/28/24 01:01 DC 11/28/24 00:45 Methylprednisolone Sodium Succinate (Solu-medROL 125MG) 125 mg ONCE ONCE IVP 11/27/24 23:00 11/27/24 23:01 DC 11/27/24 22:56 Potassium Bicarbonate (K-Lyte Tablet Eff 25 Meq Tablet.eff) 25 meq ONCE ONCE PO 11/28/24 01:00 11/28/24 01:01 DC 11/28/24 00:45 Vital Signs Date Time Temp Pulse Resp B/P (MAP) Pulse Ox O2 Delivery O2 Flow Rate FiO2 11/28/24 00:51 72 16 125/70 97 Room Air* 0 21 11/27/24 23:25 72 18 2.0 28 11/27/24 23:25 72 19 11/27/24 22:50 72 18 133/75 100 Nasal Cannula* 2 28 11/27/24 22:23 97.2 80 20 133/84 95 Room Air HEART Score Response (Comments) Value History: Low suspicion (0) 0 EKG: Normal 0 Age: 45-65yrs (+1) 1 Risk Factors: 1-2 risk factors (+1) 1 Initial Troponin: Normal limit (0) 0 Total 2 Medical Decision Making MDM The patient is a 59-year-old female with a history of diabetes, hypertension, hyperlipidemia who presents to the emergency department with complaints of chest pain, cough, sore throat for one week. CBC showed no leukocytosis, no anemia, chemistry showed mild hypochloremia, hypokalemia, hypomagnesemia, normal renal function, negative lipase, negative liver enzymes. Serology negative. Chest x-ray showed bronchitis. Unchanged from previous visit. Patient reassessed, resting in bed, reports feeling better. Imaging and laboratory exam discussed with the patient who agrees to be discharged. 02 sats 96% ra, chest pain probably related to bronchitis, low suspicion for cardiac Differential diagnosis: Pneumonia, pneumothorax, ACS Need for hospitalization: Patient does not meet criteria for hospitalization. There are no social concerns with this patient. DX & DISP Disposition: Discharge Departure Impression: Primary Impression: Bronchitis Additional Impressions: Chest pain, Cough Condition: Stable Scripts Benzonatate (Tessalon Perles) 100 Mg Cap 1 CAP PO TID for cough for 10 Days, #30 CAP 0 Refills Prov: JAME LOZOYA 11/28/24 Additional Instructions: FOLLOW-UP WITH PRIMARY CARE PROVIDER IN 1 TO 2 DAYS. TAKE MEDICATIONS DIRECTED HERE IN THE EMERGENCY ROOM. OKAY TO CONTINUE HOME MEDICATIONS UNLESS OTHERWISE DISCUSSED DURING YOUR VISIT IN THE EMERGENCY ROOM TODAY. RETURN TO YOUR NEAREST EMERGENCY ROOM IF SYMPTOMS WORSEN OR IF THERE IS NO IMPROVEMENT. CALL 911 IF YOU NEED IMMEDIATE ASSISTANCE. TAKE TYLENOL OR MOTRIN [id number] NEEDED AND IF NO CONTRAINDICATIONS ARE PRESENT. INCREASE ORAL HYDRATION. A WOUND CULTURE OR URINE CULTURE WAS ORDERED HERE IN THE EMERGENCY ROOM DEPARTMENT PLEASE FOLLOW-UP WITH PRIMARY CARE PROVIDER AND ADVISE THEM TO GET REPEAT PORTS FROM OUR FACILITY. IF YOU HAD ANY DENAE WRAP/SPLINTS THAT WERE APPLIED HERE, PLEASE DO NOT REMOVE THEM UNTIL YOU SEE YOUR PRIMARY CARE OR SPECIALTY. Referrals: PATRICIA ANTUNEZ (PCP) Time of Disposition: 01:13 I have reviewed the case, and I agree with, Diagnosis and Plan JAME LOZOYA Nov 28, 2024 01:15
--- NOTE | 2024-11-28 08:42 | HMCIMG ---
CHEST 1VW REASON: cp COMPARISON: 11/22/2024 FINDINGS: Single view of the chest was obtained. Lungs are clear. Heart size is normal. There is no pulmonary vascular congestion. Mediastinum and bony thorax appear unremarkable. The distal joint prosthesis in the left shoulder. IMPRESSION: 1. No acute finding, no change.
== END 2024-11-28 01:36 | disposition home or self-care (01) ==
LOC: EDH 22:20
DX: J40 Bronchitis, not specified as acute or chronic (principal); Z20.822 Contact with and (suspected) exposure to COVID-19; E11.9 Type 2 diabetes mellitus without complications; E78.00 Pure hypercholesterolemia, unspecified; I10 Essential (primary) hypertension; Z90.49 Acquired absence of other specified parts of digestive tract; Z90.710 Acquired absence of both cervix and uterus; Z79.899 Other long term (current) drug therapy; Z79.84 Long term (current) use of oral hypoglycemic drugs; Z98.890 Other specified postprocedural states
CPT/HCPCS: 99285; 96374; 71045; 87426; 82550; 80076; 83735; 84484; 80048; 83880; 83690; 85025; 87880; 87804 ×2; 36415; 93005; 94640; J2919

== ENCOUNTER → 2024-12-08 | Outpatient (CLI) | payer OTHER, MEDICARE ==
[~2024-12-08] MED LIST changes: +BENZ-39 PO
--- NOTE | 2024-12-08 11:16 | HMCIMG ---
MAMMO SCREENING BILATERAL HISTORY: Screening mammogram. COMPARISON: 08/07/2022 TECHNIQUE: Bilateral screening mammogram with CAD was performed with craniocaudal and mediolateral oblique projections. FINDINGS: There are scattered areas of fibroglandular density. There are bilateral dystrophic calcifications unchanged. There is no evidence of a dominant mass, or suspicious microcalcification. There is no evidence of nipple retraction or skin thickening. IMPRESSION: 1. Stable mammogram. Patient was entered into a reminder system with a target due date for their next mammogram. BI-RADS: CATEGORY 2: BENIGN FINDINGS Recommend monthly self breast exam as well as annual clinical examination. A negative x-ray should not delay biopsy if a dominant or clinically suspicious mass is present, since 8-10% of cancers are not identified by mammography. Dense breasts particularly, may obscure an underlying neoplasm. Some of these may be detected clinically and therefore, clinical examination is an essential part of breast evaluation.
== END | disposition home or self-care (01) ==
LOC: RAH 09:41
PROVIDERS: ATTEND Physician Assistant
DX: Z12.31 Encounter for screening mammogram for malignant neoplasm of breast (principal); R92.323 Mammographic fibroglandular density, bilateral breasts; R92.1 Mammographic calcification found on diagnostic imaging of breast
CPT/HCPCS: 77067

== ENCOUNTER 2025-09-14 13:35 | Emergency (ER) | payer OTHER, MEDICAID ==
[~2025-09-14] VITALS: Ht 157.5 cm; Wt 130.2 kg
[~2025-09-14 13:35] MED LIST changes: -NAPR-1023 PO; +NAPR-1194 PO
[2025-09-14 14:31] LABS: IMMATURE GRANULOCYTE ABSOLUTE 0.04 K/uL (0-1); NUCLEATED RED BLOOD CELLS 0.0 % (0.0-0.19); PLATELET COUNT (AUTO) 227 K/uL (130-400); RED BLOOD CELL COUNT(AUTO) 5.07 MIL/uL (4.00-5.50); RED CELL DISTRIBUTION WIDTH 14.8 % (11.0-15.5); WHITE BLOOD COUNT (AUTO) 7.1 K/uL (4.8-10.8)
[2025-09-14 14:46] LABS: CREATININE 0.6 mg/dL (0.5-1.0); GLOMERULAR FILTR. RATE CALC 101.0 mL/min (>90); GLUCOSE,RANDOM 239.0 mg/dL (70-105); SODIUM SERUM 141.0 mmol/L (136-145); UREA NITROGEN, BLOOD 17.0 mg/dL (7-18)
[2025-09-14 14:50] LABS: ASPARTATE AMINOTRANSFERASE 8.0 U/L (10-37); TOTAL PROTEIN, SERUM 6.7 g/dL (6.0-8.3)
[2025-09-14 14:58] LABS: APPEARANCE,URINE CLEAR (CLEAR); GLUCOSE, URINE (UA) >=1000 mg/dL (NEGATIVE); LEUKOCYTE ESTERASE ,URINE NEGATIVE Leu/uL (NEGATIVE); NITRATE,URINE NEGATIVE (NEGATIVE); OCCULT BLOOD,URINE NEGATIVE (NEGATIVE)
[2025-09-14 15:03] LABS: ADD UA MICROSCOPIC YES
--- NOTE | 2025-09-14 16:38 | ERN ---
General Chief Complaint: Hyperglycemia Stated Complaint: HYPERGLYCEMIA Time Seen by MD: 13:41 Time Seen by Midlevel: 13:41 Source: patient History of Present Illness Initial Comments Patient is a morbidly obese 60-year-old female with a past medical history of type 2 diabetes presenting to the emergency department with multiple complaints. Her main concern today is that her sugars have been over 250 nearing 300. She was started on a new medication that she believes is not working. Allergies: Coded Allergies: No Known Drug Allergies (Unverified Allergy, Unknown, 01/10/16) Home Meds Active Scripts Benzonatate (Tessalon Perles) 100 Mg Cap, 1 CAP PO TID for cough for 10 Days, #30 CAP 0 Refills Prov:JAME LOZOYA [facility] 11/28/24 Albuterol Sulfate (Ventolin Hfa/Proventil Hfa/Proair Hfa) 90 Mcg Puff, 1-2 PUFF IH Q4H PRN for SHORTNESS OF BREATH for 5 Days, #1 INH 0 Refills PHARMACY TO DISPENSE 1 INHALER FOR USE Prov:JAME LOZOYA [facility] 11/22/24 Azithromycin (Zithromax) 250 Mg Tablet, 250 MG PO AD for 5 Days, #6 TAB Take 2 250 mg tablets on day 1, then take 1 250mg tablets daily for 4 days Prov:JAME LOZOYA [facility] 11/22/24 Acetaminophen with Codeine (Acetaminophen-Cod #3 Tablet) 300 Mg-30 Mg Tablet, 1 TAB PO Q4H PRN for Moderate to severe pain, #15 TAB 0 Refills Prov:JANE THOMPSON [facility] 09/18/24 Acetaminophen with Codeine (Acetaminophen-Cod #3 Tablet) 1 Each Tablet, 1-2 TAB PO Q6H PRN for SEVERE PAIN (7-10), #12 TAB 0 Refills Prov:MITESH MCDONOUGH MD 06/17/22 Metoclopramide HCl (Reglan) 10 Mg Tablet, 10 MG PO TIDP, #20 TAB 0 Refills Prov:DAVID ARCOS MD 06/22/21 Pantoprazole Sodium (Pantoprazole Sodium) 40 Mg Tablet.dr, 40 MG PO DAILY, #10 TAB 0 Refills Prov:DAVID ARCOS MD 06/22/21 Ondansetron (Ondansetron Odt) 4 Mg Tab.rapdis, 4 MG PO Q6HPRN, #20 TAB 0 Refills Prov:DAVID ARCOS MD 06/22/21 Dicyclomine HCl (Bentyl) 20 Mg Tab, 20 MG PO Q6HPRN, #20 TAB 0 Refills Prov:DAVID ARCOS MD 06/22/21 Levofloxacin (Levaquin) 500 Mg Tablet, 500 MG PO DAILY for 10 Days, #10 TAB Prov:VICENTE KO Jr., MD 04/12/20 Insulin Glargine,Hum.rec.anlog (Lantus Solostar) 100 Unit/1 Ml Insuln.pen, 20 UNIT SQ HS for 30 Days, #1 PACK Prov:VICENTE KO Jr., MD 04/12/20 Reported Medications Exenatide Microspheres (Bydureon Pen) 2 Mg/0.65 Ml Pen.injctr, 2 MG SQ QWEEK 04/10/20 Naproxen (Naproxen) 500 Mg Tablet, 500 MG PO BID, TAB 04/10/20 [Tresiba Flex Touch] No Conflict Check, 36 UNITS SQ AM 07/27/19 Ropinirole HCl (Ropinirole HCl) 4 Mg Tablet, 4 MG PO BID, TAB 07/27/19 Amlodipine Besylate (Amlodipine Besylate) 5 Mg Tablet, 5 MG PO AM, TAB 07/27/19 Metformin HCl (Metformin HCl) 1,000 Mg Tablet, 1000 MG PO BID, TAB 07/27/19 Past Medical History Past Medical History: Bronchitis, Diabetes-Type II, High Cholesterol, Hypertension Past Surgical History: Appendectomy, Hysterectomy, Other Surgical History Other: BACK SX, ROTATOR CUFF, AND R SHOULDER. Social History Social History: Other Female( History) History: Not Applicable ROS Dictation CONSTITUTIONAL: Negative except for HPI HEAD/FACE: Negative except for HPI EENT: Negative except for HPI RESPIRATORY: Negative except for HPI GASTROINTESTINAL/ABDOMINAL: Negative except for HPI GENITOURINARY: Negative except for HPI MUSCULOSKELETAL: Negative except for HPI INTEGUMENTARY: Negative except for HPI NEUROLOGICAL/PSYCH: Negative except for HPI HEMATOLOGIC/LYMPHATIC: Negative except for HPI All Systems Negative, Except as noted above. 13 point review of systems assessed and all negative except for above. Physical Exam Physical Exam Dictation Vital Signs reviewed General Appearance: Alert, oriented x 3, no acute distress, well developed, nourished. Head and Face: non-traumatic. Eyes: PERRL, pink conjunctivas, eyelid no trauma, anterior chamber with arcus senilis. Ears: Pinnas intact and no signs of trauma or erythema ear canals clear and no discharge TM no erythema Nose: No discharge, no bleeding. Oropharynx: Mouth normal, tongue pink, pharynx clear,no erythema, tonsils no exudates, no abscesses noted, mucous membrane moist Neck: Supple, non-tender, no thyromegaly, no masses, no JVD, no bruits Breast:Deferred Chest:No tenderness, no crepitus, no paradoxical movement, no retractions Lungs:Clear, well-ventilated, symmetric, no rales, no wheezing, no rhonchi, no stridor, good breath sounds bilaterally Heart: Regular rate, regular rhythm, no murmur, no gallops Vascular: no peripheral edema, Abdomen: Soft, positive bowel sounds, nondistended, no guarding, nontender, no rebound, no masses no hepatomegaly, no splenomegaly, no Rodriguez's sign, no hernias. Rectal: Deferred Genital: Deferred Neurological: Normal speech, motor function intact, sensory function intact Musculoskeletal: Neck nontender, full range of motion, back nontender, full range of motion, Extremities: nontender, full range of motion Skin: Color pink, dry, no turgor, no rash, no lacerations, no abrasions, no contusions. Lymphatic: Deferred Results Laboratory and Microbiology Lab and Micro Result Laboratory Tests Test 09/14/25 13:42 09/14/25 14:25 09/14/25 14:42 Whole Blood Glucose 266 MG/DL (70-110) H White Blood Count 7.1 K/uL (4.8-10.8) Red Blood Count 5.07 MIL/uL (4.00-5.50) Hemoglobin 14.3 g/dL (12.0-16.0) Hematocrit 43.8 % (36-48) Mean Corpuscular Volume 86.4 fL (79-99) Mean Corpuscular Hemoglobin 28.2 pg (27.0-33.0) Mean Corpuscular Hemoglobin Concent 32.6 g/dL (32.0-36.0) Red Cell Distribution Width 14.8 % (11.0-15.5) Platelet Count 227 K/uL (130-400) Mean Platelet Volume 10.1 fL (7.5-10.5) Immature Granulocyte % (Auto) 0.6 % (0-1) Neutrophils (%) (Auto) 52.9 % (40.0-77.0) Lymphocytes (%) (Auto) 30.6 % (21.0-51.0) Monocytes (%) (Auto) 9.1 % (3.0-13.0) Eosinophils (%) (Auto) 6.2 % (0.0-8.0) Basophils (%) (Auto) 0.6 % (0.0-5.0) Neutrophils # (Auto) 3.8 K/uL (1.8-7.7) Lymphocytes # (Auto) 2.2 K/uL (1.0-4.8) Monocytes # (Auto) 0.7 K/uL (0.1-1.0) Eosinophils # (Auto) 0.44 K/uL (0.00-0.70) Basophils # (Auto) 0.04 K/uL (0.00-0.20) Absolute Immature Granulocyte (auto 0.04 K/uL (0-1) Nucleated Red Blood Cells 0.0 % (0.0-0.19) Sodium Level 141 mmol/L (136-145) Potassium Level 4.9 mmol/L (3.5-5.1) Chloride Level 105 mmol/L (101-111) Carbon Dioxide Level 29 mmol/L (21-32) Blood Urea Nitrogen 17 mg/dL (7-18) Creatinine 0.6 mg/dL (0.5-1.0) Glomerular Filtration Rate Calc 101 mL/min (>90) Random Glucose 239 mg/dL (70-105) H Whole Blood Ketones Quantitative 0.4 mmol/L (0.0-0.6) Lactic Acid Level 1.7 mmol/L (0.8-2.5) Total Calcium 9.4 mg/dL (8.5-10.1) Total Bilirubin 0.5 mg/dL (0.2-1.0) Direct Bilirubin 0.1 mg/dL (0.0-0.3) Aspartate Amino Transf (AST/SGOT) 8 U/L (10-37) L Alanine Aminotransferase (ALT/SGPT) 18 U/L (12-78) Alkaline Phosphatase 222 U/L (50-136) H Total Protein 6.7 g/dL (6.0-8.3) Albumin 3.0 g/dL (3.5-5.0) L Urine Color LIGHT-YELLOW (YELLOW) Urine Appearance CLEAR (CLEAR) Urine pH 5.5 (5.0-8.0) Urine Specific [place] 1.035 (1.001-1.031) Urine Protein NEGATIVE mg/dL (NEGATIVE) Urine Glucose (UA) >=1000 mg/dL (NEGATIVE) H Urine Ketones NEGATIVE mg/dL (NEGATIVE) Urine Occult Blood NEGATIVE (NEGATIVE) Urine Nitrate NEGATIVE (NEGATIVE) Urine Bilirubin NEGATIVE mg/dL (NEGATIVE) Urine Urobilinogen 0.2 mg/dL (0.2-1.0) Urine Leukocyte Esterase NEGATIVE Mukesh/uL Urine RBC 0-1 /HPF (0-1) Urine WBC 2-5 /HPF (0-1) H Urine Bacteria FEW /HPF (None Seen) Labs Reviewed?: Yes MDM MDM: Differential diagnosis: Uncontrolled diabetes, dehydration, electrolyte abnormality, urinary tract infection There are no social concerns with this patient. Prescription drug management Prescriptions will include: None Medical management and examination interpretation discussions were had by me with other qualified healthcare professionals as indicated for the patient's care. ED Course Orders Procedure Category Date Status Time Bedside Glucose CPOE 09/14/25 Transmitted Fingerstick 13:41 Cbc With Differential LAB 09/14/25 Complete 14:01 Basic Metabolic Panel LAB 09/14/25 Complete 14:01 Lactic Acid LAB 09/14/25 Complete 14:01 Ketone Blood LAB 09/14/25 Complete Quantitative 14:01 Urinalysis Profile LAB 09/14/25 Complete 14:01 Hepatic Function Panel LAB 09/14/25 Complete 14:01 Morphine 4mg Syg PHA 09/14/25 Complete (Morphine 4mg Syg) 15:30 Current Medications Medications (Trade) Dose Ordered Sig/David Route PRN Reason Start Time Stop Time Status Last Admin Dose Admin Morphine Sulfate (morPHINE 4MG SYG) 1 mg ONCE ONCE IM 09/14/25 15:30 09/14/25 15:31 DC Vital Signs Date Time Temp Pulse Resp B/P (MAP) Pulse Ox O2 Delivery O2 Flow Rate FiO2 09/14/25 13:37 98.1 71 20 135/55 95 Room Air DX & DISP Disposition: Discharge Departure Impression: Primary Impression: Uncontrolled diabetes mellitus with hyperglycemia Condition: Stable Additional Instructions: Your blood work today is reassuring. There are no signs of systemic infection. Your white blood cell count and hemoglobin were normal. No evidence of anemia. Your electrolytes are all within normal ranges. Your kidney function is normal. Your urinalysis does not show any evidence of infection. Your sugar was elevated at 239 however you need to follow up with your primary care doctor for medication adjustments. Referrals: TRAVIS RUIZ (PCP) I have reviewed the case, and I agree with, Diagnosis and Plan I performed the substantive portion of the visit. I have reviewed and personally made and approve the management plan that is documented in the note by myself or the YAHAIRA. I acknowledge for responsibility for the patient's management plan. JESSICA ROBERTS PAC Sep 14, 2025 16:38
[2025-09-14 17:30] VITALS: BP 146/71; PULSE 70; RESP 18; TEMP 98.2; O2SAT 95
== END 2025-09-14 17:35 | disposition home or self-care (01) ==
LOC: EDH 13:35
DX: E11.65 Type 2 diabetes mellitus with hyperglycemia (principal); E78.00 Pure hypercholesterolemia, unspecified; I10 Essential (primary) hypertension; Z90.710 Acquired absence of both cervix and uterus; Z90.49 Acquired absence of other specified parts of digestive tract; Z79.899 Other long term (current) drug therapy; Z79.84 Long term (current) use of oral hypoglycemic drugs
CPT/HCPCS: 99283; 80076; 80048; 85025; 82948; 83605; 82010; 81001; 36415; 96372; J2270

== ENCOUNTER 2025-09-18 12:58 | Emergency (ER) | payer OTHER, MEDICAID ==
[~2025-09-18] VITALS: Ht 157.5 cm; Wt 130.2 kg
--- NOTE | 2025-09-18 13:51 | EKG ---
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
[2025-09-18 13:52] LABS: IMMATURE GRANULOCYTE ABSOLUTE 0.03 K/uL (0-1); NUCLEATED RED BLOOD CELLS 0.0 % (0.0-0.19); PLATELET COUNT (AUTO) 209 K/uL (130-400); RED BLOOD CELL COUNT(AUTO) 5.05 MIL/uL (4.00-5.50); RED CELL DISTRIBUTION WIDTH 14.8 % (11.0-15.5); WHITE BLOOD COUNT (AUTO) 6.7 K/uL (4.8-10.8)
[2025-09-18] MEDS: 0.9%NACL 1000ML 1,000 ML IV ONE (13:56)
[2025-09-18 14:01] LABS: CREATININE 0.5 mg/dL (0.5-1.0); GLOMERULAR FILTR. RATE CALC 106.0 mL/min (>90); GLUCOSE,RANDOM 262.0 mg/dL (70-105); SODIUM SERUM 143.0 mmol/L (136-145); UREA NITROGEN, BLOOD 15.0 mg/dL (7-18)
[2025-09-18 14:05] LABS: ASPARTATE AMINOTRANSFERASE 13.0 U/L (10-37); CREATINE KINASE, TOTAL 47.0 U/L (21-232); TOTAL PROTEIN, SERUM 6.4 g/dL (6.0-8.3)
--- NOTE | 2025-09-18 14:54 | HMCIMG ---
EXAM: CT Abdomen and Pelvis Without IV contrast CLINICAL HISTORY: right flank pain TECHNIQUE: Axial computed tomography images of the abdomen and pelvis without intravenous contrast. CONTRAST: No IV contrast. COMPARISON: None provided. FINDINGS: LUNG BASES: The lung bases appear clear. No pleural effusions are seen. LIVER: Unremarkable. GALLBLADDER AND BILE DUCTS: The gallbladder appears within normal limits. No radioopaque gallstones are seen. No biliary ductal dilatation is evident. PANCREAS: Unremarkable. SPLEEN: Unremarkable. ADRENAL GLANDS: Unremarkable. KIDNEYS, URETERS, AND BLADDER: 1 mm nonobstructing right renal collecting system stone. No additional urinary calculi. No hydronephrosis. STOMACH AND BOWEL: Unremarkable appearance of the stomach and bowel. No evidence of bowel obstruction. No evidence suggesting enteritis or colitis. APPENDIX: Surgical clips at the base of the cecum, consistent with prior appendectomy. PERITONEUM: No free fluid. No free air. LYMPH NODES: No lymphadenopathy is evident. REPRODUCTIVE: Unremarkable as visualized. VASCULATURE: No evidence of abdominal aortic aneurysm. BONES: No aggressive appearing osseous lesion. No acute osseous pathology evident. IMPRESSION: 1 mm nonobstructing right renal collecting system stone. No additional urinary calculi. No hydronephrosis. No bowel obstruction or inflammation. Appendectomy. /[place]
[2025-09-18 15:01] LABS: APPEARANCE,URINE CLEAR (CLEAR); GLUCOSE, URINE (UA) >=1000 mg/dL (NEGATIVE); LEUKOCYTE ESTERASE ,URINE NEGATIVE Leu/uL (NEGATIVE); NITRATE,URINE NEGATIVE (NEGATIVE); OCCULT BLOOD,URINE NEGATIVE (NEGATIVE)
[2025-09-18 15:03] LABS: ADD UA MICROSCOPIC YES
[2025-09-18 15:04] LABS: SQUAMOUS EPITHELIAL CELL,UR RARE /HPF (0-2)
--- NOTE | 2025-09-18 16:32 | ERN ---
ED Note History of Present Illness Stated Complaint: MULTIPLE COMPLAINTS Chief Complaint: Multiple Complaints Time Seen by MD: 13:19 Dictation: 60-year-old female with generalized weakness and right flank pain on and on nausea no vomiting. Patient denies any chest pain shortness a breath. Similar episodes in the past. Allergies: Coded Allergies: No Known Drug Allergies (Unverified Allergy, Unknown, 01/10/16) Home Meds Active Scripts Benzonatate (Tessalon Perles) 100 Mg Cap, 1 CAP PO TID for cough for 10 Days, #30 CAP 0 Refills Prov:JAME LOZOYA [facility] 11/28/24 Albuterol Sulfate (Ventolin Hfa/Proventil Hfa/Proair Hfa) 90 Mcg Puff, 1-2 PUFF IH Q4H PRN for SHORTNESS OF BREATH for 5 Days, #1 INH 0 Refills PHARMACY TO DISPENSE 1 INHALER FOR USE Prov:JAME LOZOYA [facility] 11/22/24 Azithromycin (Zithromax) 250 Mg Tablet, 250 MG PO AD for 5 Days, #6 TAB Take 2 250 mg tablets on day 1, then take 1 250mg tablets daily for 4 days Prov:JAME LOZOYA [facility] 11/22/24 Acetaminophen with Codeine (Acetaminophen-Cod #3 Tablet) 300 Mg-30 Mg Tablet, 1 TAB PO Q4H PRN for Moderate to severe pain, #15 TAB 0 Refills Prov:JANE THOMPSON [facility] 09/18/24 Acetaminophen with Codeine (Acetaminophen-Cod #3 Tablet) 1 Each Tablet, 1-2 TAB PO Q6H PRN for SEVERE PAIN (7-10), #12 TAB 0 Refills Prov:MITESH MCDONOUGH MD 06/17/22 Metoclopramide HCl (Reglan) 10 Mg Tablet, 10 MG PO TIDP, #20 TAB 0 Refills Prov:DAVID ARCOS MD 06/22/21 Pantoprazole Sodium (Pantoprazole Sodium) 40 Mg Tablet.dr, 40 MG PO DAILY, #10 TAB 0 Refills Prov:DAVID ARCOS MD 06/22/21 Ondansetron (Ondansetron Odt) 4 Mg Tab.rapdis, 4 MG PO Q6HPRN, #20 TAB 0 Refills Prov:DAVID ARCOS MD 06/22/21 Dicyclomine HCl (Bentyl) 20 Mg Tab, 20 MG PO Q6HPRN, #20 TAB 0 Refills Prov:DAVID ARCOS MD 06/22/21 Levofloxacin (Levaquin) 500 Mg Tablet, 500 MG PO DAILY for 10 Days, #10 TAB Prov:VICENTE KO Jr., MD 04/12/20 Insulin Glargine,Hum.rec.anlog (Lantus Solostar) 100 Unit/1 Ml Insuln.pen, 20 UNIT SQ HS for 30 Days, #1 PACK Prov:VICENTE KO Jr., MD 04/12/20 Reported Medications Exenatide Microspheres (Bydureon Pen) 2 Mg/0.65 Ml Pen.injctr, 2 MG SQ QWEEK 04/10/20 Naproxen (Naproxen) 500 Mg Tablet, 500 MG PO BID, TAB 04/10/20 [Tresiba Flex Touch] No Conflict Check, 36 UNITS SQ AM 07/27/19 Ropinirole HCl (Ropinirole HCl) 4 Mg Tablet, 4 MG PO BID, TAB 07/27/19 Amlodipine Besylate (Amlodipine Besylate) 5 Mg Tablet, 5 MG PO AM, TAB 07/27/19 Metformin HCl (Metformin HCl) 1,000 Mg Tablet, 1000 MG PO BID, TAB 07/27/19 Past Medical History Past Medical History: Diabetes-Type II, High Cholesterol, Hypertension Surgical History: Appendectomy, Hysterectomy Surgical History Other: BACK SX, ROTATOR CUFF, AND R SHOULDER. Social History: Other History: Not Applicable Review of System Dictation Constitutional: Negative for fever,chills, and weight loss Eyes: Negative for injury, pain,redness, and discharge ENT: Negative for injury,pain or swelling Cardiovascular: Negative for chest pain, palpitations, and edema Respiratory: Negative for shortness of breath, cough, and wheezing, Abdomen/GI: Negative for abdominal pain, nausea, vomiting, diarrhea, and constipation Back: Per HPI MS/Extremity: Negative for injury and deformity Skin: Negative for rash, and discoloration Neuro: Negative for headache, weakness, numbness, tingling, and seizure Psych: Negative for suicide ideation, homicidal ideation, and hallucinations Initial Vital Sign VS Vital Signs Date Time Temp Pulse Resp B/P (MAP) Pulse Ox O2 Delivery O2 Flow Rate FiO2 09/18/25 12:59 98.8 74 18 134/96 98 0 09/18/25 13:36 Room Air* 21 Physical Exam Dictation General: awake, alert, appears uncomfortable Head/Face: Normocephalic, atraumatic Eyes: PERRL, EOMI, vision at baseline ENT: oral cavity clear, TMs clear, no signs of infection Neck: Trachea midline, supple, no nuchal rigidity Cardiovascular: RRR, normal S1/S2, No MRGs, no JVD Respiratory: CTAB, no respiratory distress, No rales or wheezes Abdomen: Soft, non-tender, non-distended, normal bowel sounds, no guarding or rebound. Right CVA tenderness to palpation Skin: Warm, dry, normal turgor, no rash MS/Extremity: Pulses equal, no cyanosis, neurovascular intact, FROM Neuro: COAx4, GCS 15, strength 5/5, CN 2-12 intact, normal cerebellar exam, normal gait, Psych: Normal behavior, mood, and affect normal Results (Laboratory/Radiology) Laboratory/Radiology Laboratory Tests Test 09/18/25 13:35 09/18/25 13:45 Urine Color LIGHT-YELLOW (YELLOW) Urine Appearance CLEAR (CLEAR) Urine pH 5.5 (5.0-8.0) Urine Specific [place] 1.033 (1.001-1.031) Urine Protein NEGATIVE mg/dL (NEGATIVE) Urine Glucose (UA) >=1000 mg/dL (NEGATIVE) H Urine Ketones NEGATIVE mg/dL (NEGATIVE) Urine Occult Blood NEGATIVE (NEGATIVE) Urine Nitrate NEGATIVE (NEGATIVE) Urine Bilirubin NEGATIVE mg/dL (NEGATIVE) Urine Urobilinogen 0.2 mg/dL (0.2-1.0) Urine Leukocyte Esterase NEGATIVE [place]/uL Urine RBC 0-1 /HPF (0-1) Urine WBC 2-5 /HPF (0-1) H Urine Squamous Epithelial Cells RARE /HPF (0-2) Urine Bacteria FEW /HPF (None Seen) White Blood Count 6.7 K/uL (4.8-10.8) Red Blood Count 5.05 MIL/uL (4.00-5.50) Hemoglobin 14.1 g/dL (12.0-16.0) Hematocrit 43.7 % (36-48) Mean Corpuscular Volume 86.5 fL (79-99) Mean Corpuscular Hemoglobin 27.9 pg (27.0-33.0) Mean Corpuscular Hemoglobin Concent 32.3 g/dL (32.0-36.0) Red Cell Distribution Width 14.8 % (11.0-15.5) Platelet Count 209 K/uL (130-400) Mean Platelet Volume 9.8 fL (7.5-10.5) Immature Granulocyte % (Auto) 0.4 % (0-1) Neutrophils (%) (Auto) 56.9 % (40.0-77.0) Lymphocytes (%) (Auto) 28.5 % (21.0-51.0) Monocytes (%) (Auto) 7.3 % (3.0-13.0) Eosinophils (%) (Auto) 6.5 % (0.0-8.0) Basophils (%) (Auto) 0.4 % (0.0-5.0) Neutrophils # (Auto) 3.8 K/uL (1.8-7.7) Lymphocytes # (Auto) 1.9 K/uL (1.0-4.8) Monocytes # (Auto) 0.5 K/uL (0.1-1.0) Eosinophils # (Auto) 0.44 K/uL (0.00-0.70) Basophils # (Auto) 0.03 K/uL (0.00-0.20) Absolute Immature Granulocyte (auto 0.03 K/uL (0-1) Nucleated Red Blood Cells 0.0 % (0.0-0.19) Sodium Level 143 mmol/L (136-145) Potassium Level 4.0 mmol/L (3.5-5.1) Chloride Level 106 mmol/L (101-111) Carbon Dioxide Level 28 mmol/L (21-32) Blood Urea Nitrogen 15 mg/dL (7-18) Creatinine 0.5 mg/dL (0.5-1.0) Glomerular Filtration Rate Calc 106 mL/min (>90) Random Glucose 262 mg/dL (70-105) H Total Calcium 8.9 mg/dL (8.5-10.1) Total Bilirubin 0.8 mg/dL (0.2-1.0) Direct Bilirubin 0.2 mg/dL (0.0-0.3) Aspartate Amino Transf (AST/SGOT) 13 U/L (10-37) Alanine Aminotransferase (ALT/SGPT) 23 U/L (12-78) Alkaline Phosphatase 189 U/L (50-136) H Total Creatine Kinase 47 U/L (21-232) # Troponin I High Sensitivity 10 ng/L (4-50) Total Protein 6.4 g/dL (6.0-8.3) Albumin 2.9 g/dL (3.5-5.0) L EKG Comment: Heart rate 70, normal sinus rhythm, normal intervals no STEMI ED Course ED Course Orders Procedure Category Date Status Time 12 Lead Ekg Tracing- EKG 09/18/25 Complete Technical 13:19 Basic Metabolic Panel LAB 09/18/25 Complete 13:19 Cbc With Differential LAB 09/18/25 Complete 13:19 Hepatic Function Panel LAB 09/18/25 Complete 13:19 Creatine Kinase, Total LAB 09/18/25 Complete 13:19 Troponin I High LAB 09/18/25 Complete Sensitivity 13:19 Urinalysis Profile LAB 09/18/25 Complete 13:19 0.9%Nacl 1000ml (Ns PHA 09/18/25 Complete 1000ml) 13:30 Ondansetron 4mg Inj PHA 09/18/25 Complete (Zofran 4mg Inj) 13:19 Ketorolac PHA 09/18/25 Complete Tromethamine 15mg/Ml 14:30 Ct Abd/Pel Wo Con CT 09/18/25 Resulted Renal/Appy 14:07 Current Medications Medications (Trade) Dose Ordered Sig/David Route PRN Reason Start Time Stop Time Status Last Admin Dose Admin Ketorolac Tromethamine (toRADol) 15 mg ONCE ONCE IV 09/18/25 14:30 09/18/25 14:31 DC 09/18/25 14:20 Ondansetron HCl (zoFRAN 4MG INJ) 4 mg ONCE STAT IVP 09/18/25 13:19 09/18/25 13:27 DC 09/18/25 13:56 Sodium Chloride 1,000 ml @ 0 mls/hr ONCE ONCE IV 09/18/25 13:30 09/18/25 13:31 DC 09/18/25 13:56 Vital Signs Date Time Temp Pulse Resp B/P (MAP) Pulse Ox O2 Delivery O2 Flow Rate FiO2 09/18/25 13:36 98.2 71 16 137/70 96 Room Air* 0 21 09/18/25 12:59 98.8 74 18 134/96 98 0 Medical Decision Making MDM MDM: Differential diagnosis: Rationale: Tests considered and ordered secondary to shared decision making include: Previous outside records reviewed: Old ER visits. Risk of complication and/or morbidity or mortality of patient management: None Medications-Per medication reconciliation Need for hospitalization: Patient does not meet criteria for hospitalization. Need for emergency major/minor surgery: No There are no social concerns with this patient. Prescription drug management Prescriptions will include symptomatic care Patient's prior external medical records from other ER visits were reviewed by me as indicated. Prior testing and results from previous visits were reviewed. Prior tests were taken into account with medical decision making and resource utilization, independent historian/historians were used to obtain complete medical history. I independently interpreted the test that were performed, results were reviewed by me and considered findings on radiology if ordered. Medical management and examination interpretation discussions were had by me with other qualified healthcare professionals as indicated for the patient's care. 60-year-old female with generalized weakness and right flank pain stable exam negative workup symptoms improved CT scan of the abdomen and pelvis negative no stones. DX & DISP Disposition: Discharge Departure Impression: Primary Impression: Right flank pain Additional Impression: Weakness Condition: Stable Referrals: TRAVIS RUIZ (PCP) MARK DONOHUE MD Sep 18, 2025 16:32
[2025-09-18 16:49] VITALS: BP 138/65; PULSE 70; RESP 16; TEMP 98.3; O2SAT 96
== END 2025-09-18 17:05 | disposition home or self-care (01) ==
LOC: EDH 12:58
DX: N20.0 Calculus of kidney (principal); R10.A1 Flank pain, right side; R53.1 Weakness; E11.9 Type 2 diabetes mellitus without complications; E78.00 Pure hypercholesterolemia, unspecified; I10 Essential (primary) hypertension; Z79.84 Long term (current) use of oral hypoglycemic drugs; Z79.899 Other long term (current) drug therapy; Z90.49 Acquired absence of other specified parts of digestive tract; Z90.710 Acquired absence of both cervix and uterus
CPT/HCPCS: 99285; 74176; 96374; 96375; 82550; 80076; 84484; 80048; 85025; 81001; 36415; 93005; J1885; J7030; J2405